=== PATIENT | male | born 1940 | race Caucasian/White ===

== ENCOUNTER → 2017-10-24 | Outpatient (CLI) | payer MEDICARE, BC ==
[~2017-10-24] MED LIST: ACET325; ACETYLCYST INH; ALBU2SYA PO; ALBU90OI6 INH; ALBUIS INH; ALEN70 PO; AMOCLA875 PO; ASPI325 PO; ATOR40TA PO; AZIT250 PO; BENZ100A PO; Bactrim Ds Tab1 EACH PO; CALCNI; CHOL10002 PO; CLOP75 PO; CYAN1000 PO; CYCL10 PO; DOCU100; EXTRA STRENGTH500 MG PO; FAMO20 PO; FENO145 PO; FISH1000 PO; FLUSAL5005 IH; FLUSAL5005 INH; FOLI1 PO; FURO20 PO; FURO40 PO; GABA300T24; GUAI600T33 PO; HYDR-86 PO; HYDR1TAB94; JALYN 0.5-0.41 EACH PO; JALYN PO; LANS30EC PO; LEVFLO500 PO; LEVO750 PO; LEVSOD100 PO; METPRE4DP PO; MONT10T PO; MULVITB&C PO; MULVITMIND PO; NAPR500 PO; NEBI10 PO; NEBI5 PO; NIAC500 PO; NITR.4SL SL; Norco 10-325 T1 EACH PO; Norco 5-325 Ta1 EACH PO; PANT40 PO; PRED10; PRED10 PO; PRED20 PO; Percocet 5-3251 EACH PO; Prednisone20 MG PO; RANO500T PO; RIFA300 PO; ROFL500T; ROFL500T PO; SITA100T2; TIOT18 IH; TIOT18 INH; VERA180ERB PO; Ventolin Soln3 ML INH; Zithromax250 MG PO; [UNRECOGNIZED DRUG - CODE]; [UNRECOGNIZED DRUG - OTHER]; [UNRECOGNIZED DRUG - OTHER]
== END | disposition home or self-care (01) ==
LOC: PLD 07:42 → LAB SHORT 07:42
DX: C44.321 Squamous cell carcinoma of skin of nose (principal)
CPT/HCPCS: 88305

== ENCOUNTER → 2017-11-02 | Outpatient (CLI) | payer MEDICARE, BC | END | disposition home or self-care (01) | LOC: LAB SHORT 08:04 → PLD 08:04 | DX: D48.5 Neoplasm of uncertain behavior of skin (principal) | CPT/HCPCS: 88304 ==

== ENCOUNTER → 2017-11-27 | Outpatient (CLI) | payer MEDICARE, BC ==
[~2017-11-27] MED LIST changes: -Norco 5-325 Ta1 EACH PO
== END | disposition home or self-care (01) ==
LOC: LAB SHORT 14:18 → PLD 14:18
DX: C44.321 Squamous cell carcinoma of skin of nose (principal)
CPT/HCPCS: 88305

== ENCOUNTER 2018-01-03 10:34 | Day surgery (SDC) | payer MEDICARE, BC ==
[~2018-01-03] VITALS: Ht 167.6 cm; Wt 66.2 kg
[2018-01-03] MEDS ORDERED: Norco 5-325 Ta1 EACH PO (11:18)
== END 2018-01-03 12:07 | disposition home or self-care (01) ==
LOC: ORSCSDS 10:34
PROVIDERS: Internal Medicine Gastroenterology
PROC: 0DJ08ZZ Inspection of Upper Intestinal Tract, Via Natural or Artificial Opening Endoscopic (ICD-10-PCS; principal; 2018-01-03 12:00)
DX: R13.10 Dysphagia, unspecified (principal); J44.9 Chronic obstructive pulmonary disease, unspecified; G47.33 Obstructive sleep apnea (adult) (pediatric); R93.5 Abnormal findings on diagnostic imaging of other abdominal regions, including retroperitoneum; K21.9 Gastro-esophageal reflux disease without esophagitis; I10 Essential (primary) hypertension; E03.9 Hypothyroidism, unspecified; E78.5 Hyperlipidemia, unspecified; F17.210 Nicotine dependence, cigarettes, uncomplicated; K22.8 Other specified diseases of esophagus; Z79.82 Long term (current) use of aspirin; Z79.899 Other long term (current) drug therapy
CPT/HCPCS: J2250; J7120

== ENCOUNTER → 2018-12-11 | Outpatient (CLI) | payer MEDICARE, BC ==
[~2018-12-11] MED LIST changes: +Norco 5-325 Ta1 EACH PO
== END | disposition home or self-care (01) ==
LOC: LAB SHORT 07:45 → PLD 07:45
DX: L28.1 Prurigo nodularis (principal)
CPT/HCPCS: 88305

== ENCOUNTER 2019-06-07 01:23 | Inpatient (IN) | payer MEDICARE, BC ==
[~2019-06-07] VITALS: Ht 175.3 cm; Wt 68.3 kg
[~2019-06-07 01:23] MED LIST changes: -GABA300T24; +GABA300T24 PO
[2019-06-07 01:45] LABS: Calcium, Ionized (POC) 1.17 mmol/L (1.10-1.46); Chloride (POC) 109 mmol/L (98-108); Creatinine (POC) 1.9 mg/dL (0.8-1.3); Glucose (ISTAT POC) 128 mg/dL (70-99); Hemoglobin (POC) 8.5 g/dL (13.5-17.5); Potassium (POC) 4.2 mmol/L (3.5-5.5); Sodium (POC) 142 mmol/L (135-148); Total CO2 (POC) 22 mmol/L (21-32)
[2019-06-07 01:53] LABS: Hematocrit 26.8 % (37.0-53.0); Hemoglobin 8.7 g/dL (13.5-17.5); Mean Corpuscular HGB 34.7 pg (26.0-34.0); Mean Corpuscular HGB Conc 32.5 g/dL (31.5-36.5); Mean Corpuscular Volume 107 fL (80-100); Mean Platelet Volume 10.8 fL (9.1-12.4); Platelet Count 74 K/mm3 (150-400); RDW Coefficient Variation 15.7 % (11.7-14.2); RDW Standard Deviation 61.7 fL (35.1-46.3); Red Blood Cell Count 2.51 M/mm3 (4.30-5.90); White Blood Cell Count 2.01 K/mm3 (4.00-11.30)
[2019-06-07 02:06] LABS: CPK Creatine Kinase 159 U/L (39-308); Creatine Kinase MB 3.5 ng/mL (0.0-3.6); Creatine Kinase MB Index 2.2 (0.0-4.0); Troponin I <0.015 ng/mL (0.000-0.040)
[2019-06-07 02:08] LABS: Albumin/Globulin Ratio 0.9 (0.8-1.8); Bilirubin, Total 0.4 mg/dL (0.1-1.0); Bun/Creatinine Ratio 17.9 (12.0-20.0); Calcium, Blood 8.5 mg/dL (8.5-10.1); Creatinine, Blood 1.62 mg/dL (0.60-1.20); Globulin, Blood 3.4 g/dL (2.2-4.0); Potassium, Blood 4.2 mmol/L (3.5-5.5); Total Protein, Blood 6.4 g/dL (6.4-8.2)
[2019-06-07 02:09] LABS: International Normalized Ratio 1.14; Prothrombin Time Results 11.9 Sec (9.7-11.5)
--- NOTE | 2019-06-07 04:08 | NUR ---
PT ADMITTED TO ROOM 336 PER CART FROM ER.
--- NOTE | 2019-06-07 06:08 | NUR ---
SHIFT SUMMARY: 79 Y/O MALE RESTED COMFORTABLY ALL SHIFT, 0505 LAB TROPONIN WAS .063 (Karime MATIAS, TYLER, CHARGE NURSE ADVISED, NEXT TROPONIN DRAW SCHEDULED IN 3 HOURS), PT VOICED HE DOES NOT LIKE WATER, DENIES CHEST PAIN, SOB, OR NAUSEA, VOICED THAT HE HAS DAUGHTER AT HOME WHOM ON A VENTILATOR AND HE IS PRIMARY CAREGIVER AND THAT HE DOES HAVE HOME CARE IN HOME, [facility] TRIAGE NURSE WAS NOTIFIED BY GÓMEZ BARNEY RN OF THE ABOVE, BED LOW POSITION WITH CALL LIGHT AT SIDE.
--- NOTE | 2019-06-07 07:00 | NUR ---
ASSUMED CARE OF PT- PT ALERT AND ORIENTED AND INDEPENDENT IN THE ROOM. PER REPORT PT HAS HAD NO C/O CP SINCE ARRIVAL ON THE UNIT. PT HAS A CONSULT FOR PALLIATIVE CARE, CALLED ON [facility] AND LEFT A MESSAGE. NIGHT RN CALLED PROVIDER CONSULT TO CARDIOLOGY AND DR STERLING CAME TO SEE THE PT DURING REPORT. PT TROPONIN IS ELEVATED, REPEAT TROPONIN WENT UP. PT DENIES CP ON ASSESSMENT. DIET ORDER IN THE COMPUTER. CALLED DR CHU, PER DR CHU KEEP PT NPO UNTIL HE SEES THE PT. BETA FANNY HELD D/T HR 49 ON TELE THIS MORNING. PT SENDING FOR HOME MED DALIRESP TO BE BROUGHT IN. PT HAD 2IV'S AT CHANGE OF SHIFT ONE A FIELD START, NO LONGER PATENT AND WAS DC'D. AC IV IN THE RIGHT ARM NOW RUNNING HEPRIN DRIP.
[2019-06-07 07:34] LABS: International Normalized Ratio 1.14; Prothrombin Time Results 11.9 Sec (9.7-11.5)
--- NOTE | 2019-06-07 12:12 | NUR ---
PT IV IN AC IS POSITIONAL, PLACED A NEW IV IN THE LEFT FA AND MELISSA LAB SAMPLE AT THE TIME OF PLACEMENT. PT TOLLERATED WELL. HEPRIN NOW INFUSING THROUGH THIS IV.
[2019-06-07 12:16] LABS: Hematocrit 26.6 % (37.0-53.0); Hemoglobin 8.7 g/dL (13.5-17.5); Mean Corpuscular HGB 34.9 pg (26.0-34.0); Mean Corpuscular HGB Conc 32.7 g/dL (31.5-36.5); Mean Corpuscular Volume 107 fL (80-100); Mean Platelet Volume 11.2 fL (9.1-12.4); Platelet Count 74 K/mm3 (150-400); RDW Coefficient Variation 15.3 % (11.7-14.2); RDW Standard Deviation 59.9 fL (35.1-46.3); Red Blood Cell Count 2.49 M/mm3 (4.30-5.90)
[2019-06-07 12:42] LABS: BASOPHILS PERCENT MAN 0 % (0-2); EOSINOPHILS PERCENT MAN 5 % (0-6); LYMPHOCYTES ABSOLUTE MAN 0.92 K/mm3 (0.84-5.20); LYMPHOCYTES PERCENT MAN 46 % (21-46); MONOCYTES ABSOLUTE MAN 0.28 K/mm3 (0.16-1.47); MONOCYTES PERCENT MAN 14 % (4-13); SEG NEUTROPHILS PERCENT MAN 35 % (41-73); TOTAL CELLS COUNTED 100
[2019-06-07 15:20] LABS: Percent Saturation 47.7 % (20.0-50.0)
--- NOTE | 2019-06-07 17:57 | NUR ---
SHIFT SUMMARY- PT HAD A PROVIDER CONSULT FOR HEMATOLOGY AND WAS SEEN TODAY. NEW ORDERS FOR SEND OUT LABS DRAWN. PT ALERT AND ORINETED, SEEMS MORE TIRED THIS EVENING THAN THIS MORNING. MORNING DOSE OF CARVEDILOL HELD D/T PULSE OF [address] CHU AWARE. CALLED FOR PARAMETER PT HR 62 THIS EVENING, NEW PARAMETER TO HOLD FOR HR LESS THAN 50. CARVEDILOL GIVEN THIS EVENING RELAYED PT VITALS TO DR PRIOR TO ADMINISTRATION. PT ON 2L O2 VIA NC, O2 SATS STABLE. PT IN NEUTROPENIC PRECAUTION D/T WBC COUNT OF 2.0 ON MORNING LABS. PT IS AWARE OF THIS, FIRST SHOT OF GRANIX ADMINISTERED TODAY.
--- NOTE | 2019-06-08 04:54 | NUR ---
SHIFT SUMMARY NO ACUTE EVENTS OVERNIGHT. SEE EMAR FOR HEPARIN DOWING. IV PATENT. NEUTROPENIC PRECAUSTIONS OBSERVED. VSS. WILL CONTINUE TO MONITOR
[2019-06-08 08:07] LABS: COMPLEMENT C3, SERUM 103 mg/dL (82-167); COMPLEMENT C4, SERUM 26 mg/dL (14-44); IMMUNOGLOBULIN A, QN, SERUM 222 mg/dL (61-437); IMMUNOGLOBULIN G, QN, SERUM 915 mg/dL (700-1600); IMMUNOGLOBULIN M, QN, SERUM 67 mg/dL (15-143)
[2019-06-08 08:46] LABS: Hematocrit 29.6 % (37.0-53.0); Hemoglobin 9.8 g/dL (13.5-17.5); Mean Corpuscular HGB 34.3 pg (26.0-34.0); Mean Corpuscular HGB Conc 33.1 g/dL (31.5-36.5); Mean Platelet Volume 11.4 fL (9.1-12.4); Platelet Count 67 K/mm3 (150-400); RDW Coefficient Variation 15.7 % (11.7-14.2); RDW Standard Deviation 59.7 fL (35.1-46.3); Red Blood Cell Count 2.86 M/mm3 (4.30-5.90); White Blood Cell Count 8.68 K/mm3 (4.00-11.30)
[2019-06-08 08:47] LABS: Mean Corpuscular Volume 104 fL (80-100)
[2019-06-08 09:11] LABS: BAND PERCENT MAN 7 % (0-8); BASOPHILS PERCENT MAN 0 % (0-2); EOSINOPHILS ABSOLUTE MAN 0.52 K/mm3 (0.00-0.68); EOSINOPHILS PERCENT MAN 6 % (0-6); LYMPHOCYTES PERCENT MAN 15 % (21-46); MONOCYTES ABSOLUTE MAN 0.69 K/mm3 (0.16-1.47); MONOCYTES PERCENT MAN 8 % (4-13); NEUTROPHILS ABSOLUTE MAN 6.16 K/mm3 (1.96-9.15); SEG NEUTROPHILS PERCENT MAN 64 % (41-73); TOTAL CELLS COUNTED 100
--- NOTE | 2019-06-08 09:33 | NUR ---
PER DR.WEESE KJ LUGO
--- NOTE | 2019-06-08 15:54 | NUR ---
ALERT. ORIENTED. SLEEPING MOST OF DAY. DENIES; N/V/D OR CHEST PAIN. TAKES OFF OXYGEN SOMETIMES. UNLABORED RESPIRATIONS. TELE ON. DR. OLVERA WAS IN TO SEE AND WILL SEE TOMORROW. IV PATENT. BED IN LOW POSITION. WCTM.
--- NOTE | 2019-06-08 20:07 | NUR ---
NOTIFIED CHARGE STEAK SAUCE MAKER TOOK BP READING OF 96/59. I REASSESSED BP MYSELF, NOTIFIED CHARGE OF LOW BP READING OF 91/60. PT IS ASYMPTOMATIC AND HIS HR IS 75 BPM. PT IS ON TELEMETRY, MONITORED BY PCU PUMP TENDER. NS IS INFUSING AT 75 ML/HR. PT TRENDS LOW BP'S 103-104 SBP'S TYPICALLY. WILL CONTINUE TO MONITOR.
[2019-06-08 22:14] LABS: Stool Occult Bld Immuno 1 Negative (NEGATIVE)
--- NOTE | 2019-06-09 04:25 | NUR ---
SHIFT SUMMARY NS INFUSING AT 75 ML/HR ORDERED. I DID NOTE SOME MILD HYPOTENSION AT BEGINNING OF SHIFT, BUT PT ASYMPTOMATIC AND TRENDS LOW BP'S. LATEST BP HAS TRENDED UP TO HIS BASELINE. PT ON NEUTROPENIC PRECAUTIONS DUE TO PANCYTOPENIA. RBC AND WBC LABS HAVE SHOWN IMPROVEMENT, PLATELETS HAVE DOWNTRENDED. AWAITING NEWEST LAB RESULTS AT THE TIME OF THIS WRITING. STOOL SAMPLE RETRIEVED AND FOUND TO BE NEGATIVE FOR BLEED. TELEMETRY MONITORING REVEALS NSR @ 72 BPM W/PVC'S ACCORDING TO PCU CUSHION FILLER.
[2019-06-09 04:42] LABS: Hematocrit 28.8 % (37.0-53.0); Hemoglobin 9.5 g/dL (13.5-17.5); Mean Corpuscular HGB 34.5 pg (26.0-34.0); Mean Corpuscular Volume 105 fL (80-100); Platelet Count 80 K/mm3 (150-400); RDW Coefficient Variation 15.9 % (11.7-14.2); RDW Standard Deviation 60.3 fL (35.1-46.3); Red Blood Cell Count 2.75 M/mm3 (4.30-5.90); White Blood Cell Count 6.76 K/mm3 (4.00-11.30)
[2019-06-09 05:02] LABS: BAND PERCENT MAN 22 % (0-8); BASOPHILS PERCENT MAN 0 % (0-2); EOSINOPHILS ABSOLUTE MAN 0.06 K/mm3 (0.00-0.68); EOSINOPHILS PERCENT MAN 1 % (0-6); LYMPHOCYTES ABSOLUTE MAN 1.41 K/mm3 (0.84-5.20); LYMPHOCYTES PERCENT MAN 21 % (21-46); MONOCYTES ABSOLUTE MAN 0.54 K/mm3 (0.16-1.47); MONOCYTES PERCENT MAN 8 % (4-13); NEUTROPHILS ABSOLUTE MAN 4.73 K/mm3 (1.96-9.15); SEG NEUTROPHILS PERCENT MAN 48 % (41-73); TOTAL CELLS COUNTED 100
[2019-06-09 05:23] LABS: Albumin, Blood 2.8 g/dL (3.4-5.0); Albumin/Globulin Ratio 0.8 (0.8-1.8); Bilirubin, Total 0.3 mg/dL (0.1-1.0); Bun/Creatinine Ratio 14.5 (12.0-20.0); Calcium, Blood 8.6 mg/dL (8.5-10.1); Creatinine, Blood 1.59 mg/dL (0.60-1.20); Globulin, Blood 3.4 g/dL (2.2-4.0); Total Protein, Blood 6.2 g/dL (6.4-8.2)
[2019-06-09 05:36] LABS: Troponin I 0.661 ng/mL (0.000-0.040)
--- NOTE | 2019-06-09 05:54 | NUR ---
SHIFT SUMMARY ADDENDUM IT IS OF NOTE THAT TROPONIN LABS ARE IMPROVING, LATEST LAB VALUE IS 0.661 - DOWN FROM A PEAK OF 0.979. CHARGE INFORMED. WILL CONTINUE TO MONITOR.
[2019-06-09] MEDS ORDERED: NEBI10 PO (11:26)
[2019-06-09] MEDS ORDERED: LEVO750 PO (11:32)
[2019-06-09] MEDS ORDERED: CEFU500T30 PO (11:33)
--- NOTE | 2019-06-09 11:55 | NUR ---
DISCHARGE INSTRUCTIONS VERBALLIZED TO PATIENT. PRINTED COPY GIVEN TO PATIENT FOR REFERENCE. IV AND TELE REMOVED. ALL QUESTIONS ANSWERED. PATIENT AWAITING FRIEND TO ARRIVE FOR TRANSPORT HOME.
--- NOTE | 2019-06-09 11:56 | NUR ---
PATIENT HOME MEDICATION RETURNED TO PATIENT
--- NOTE | 2019-06-09 12:22 | NUR ---
PATIENT DISCHARGED HOME AT 1218.
[2019-06-09 22:06] LABS: ANTI-DSDNA ANTIBODIES <1 IU/mL (0-9); RNP ANTIBODIES <0.2 AI (0.0-0.9); SJOGREN'S ANTI-SS-A <0.2 AI (0.0-0.9); SJOGREN'S ANTI-SS-B <0.2 AI (0.0-0.9); SMITH ANTIBODIES <0.2 AI (0.0-0.9)
[2019-06-11 14:07] LABS: A/G RATIO 1.1 (0.7-1.7); ALPHA-1-GLOBULIN 0.2 g/dL (0.0-0.4); ALPHA-2-GLOBULIN 0.8 g/dL (0.4-1.0); BETA GLOBULIN 0.8 g/dL (0.7-1.3); GAMMA GLOBULIN 0.9 g/dL (0.4-1.8); GLOBULIN, TOTAL 2.7 g/dL (2.2-3.9); M-SPIKE Not Observed g/dL (Not Observed); PROTEIN, TOTAL, SERUM 5.7 g/dL (6.0-8.5)
== END 2019-06-09 12:18 | disposition home or self-care (01) | DRG 280 ==
LOC: ER 01:23 → MEDS 01:24
PROVIDERS: Emergency Medicine; Family Medicine; Internal Medicine Hematology & Oncology; ADMIT Hospitalist
DX: I21.4 Non-ST elevation (NSTEMI) myocardial infarction (principal); J18.9 Pneumonia, unspecified organism; J44.1 Chronic obstructive pulmonary disease with (acute) exacerbation; D61.818 Other pancytopenia; J44.0 Chronic obstructive pulmonary disease with (acute) lower respiratory infection; I25.10 Atherosclerotic heart disease of native coronary artery without angina pectoris; F17.210 Nicotine dependence, cigarettes, uncomplicated; I35.1 Nonrheumatic aortic (valve) insufficiency; G47.33 Obstructive sleep apnea (adult) (pediatric); E03.9 Hypothyroidism, unspecified; I12.9 Hypertensive chronic kidney disease with stage 1 through stage 4 chronic kidney disease, or unspecified chronic kidney disease; E11.22 Type 2 diabetes mellitus with diabetic chronic kidney disease; N18.3 Chronic kidney disease, stage 3 (moderate)
CPT/HCPCS: 36415; 71045; 71250; 80047; 80053; 82274; 82550; 82553; 82607; 82728; 82746; 82784; 83540; 83550; 83690; 83735; 83880; 84165; 84484; 85007; 85014; 85025; 85027; 85060; 85610; 85730; 86160; 86225; 86235; 93005; 93010; 93306; 94640; 94760; 96360; 96361; 96374; 99285-25; G0378; G0480; J0696; J1447; J1644; J7030

== ENCOUNTER → 2019-07-25 | Outpatient (CLI) | payer MEDICARE, BC ==
[~2019-07-25] MED LIST changes: +CEFU500T30 PO
[2019-07-25 11:48] LABS: BASOPHILS ABSOLUTE AUTO 0.01 K/mm3 (0.00-0.23); BASOPHILS PERCENT AUTO 1 % (0-2); EOSINOPHILS ABSOLUTE AUTO 0.05 K/mm3 (0.00-0.68); EOSINOPHILS PERCENT AUTO 2 % (0-6); Hematocrit 26.9 % (37.0-53.0); Hemoglobin 8.8 g/dL (13.5-17.5); IMMATURE GRAN ABSOLUTE AUTO 0.11 K/mm3 (0.00-0.10); IMMATURE GRAN PERCENT AUTO 5 % (0-1); LYMPHOCYTES ABSOLUTE AUTO 0.81 K/mm3 (0.84-5.20); LYMPHOCYTES PERCENT AUTO 38 % (21-46); MONOCYTES ABSOLUTE AUTO 0.31 K/mm3 (0.16-1.47); MONOCYTES PERCENT AUTO 15 % (4-13); Mean Corpuscular HGB 35.8 pg (26.0-34.0); Mean Corpuscular HGB Conc 32.7 g/dL (31.5-36.5); Mean Corpuscular Volume 109 fL (80-100); Mean Platelet Volume 11.3 fL (9.1-12.4); NEUTROPHILS ABSOLUTE AUTO 0.83 K/mm3 (1.96-9.15); NEUTROPHILS PERCENT AUTO 39 % (41-73); Platelet Count 84 K/mm3 (150-400); RDW Coefficient Variation 15.7 % (11.7-14.2); RDW Standard Deviation 63.7 fL (35.1-46.3); Red Blood Cell Count 2.46 M/mm3 (4.30-5.90); White Blood Cell Count 2.12 K/mm3 (4.00-11.30)
== END | disposition home or self-care (01) ==
LOC: LAB SHORT 11:15 → LAB 11:15
PROVIDERS: Registered Nurse Oncology
DX: M81.0 Age-related osteoporosis without current pathological fracture (principal); D61.818 Other pancytopenia
CPT/HCPCS: 85025

== ENCOUNTER 2019-08-31 19:35 | Inpatient (IN) | payer MEDICARE, BC ==
[~2019-08-31] VITALS: Ht 167.6 cm; Wt 70.3 kg
[2019-08-31 20:10] LABS: PCO2 Arterial 31.1 mmHg (35-45); PO2 Arterial 70.1 mmHg (80-100); pH Blood Arterial 7.48 (7.35-7.45)
[2019-08-31 20:12] LABS: Hematocrit 24.1 % (37.0-53.0); Hemoglobin 7.7 g/dL (13.5-17.5); Mean Corpuscular Volume 113 fL (80-100); Mean Platelet Volume 10.9 fL (9.1-12.4); Platelet Count 68 K/mm3 (150-400); RDW Coefficient Variation 16.8 % (11.7-14.2); RDW Standard Deviation 69.5 fL (35.1-46.3); Red Blood Cell Count 2.14 M/mm3 (4.30-5.90); White Blood Cell Count 4.02 K/mm3 (4.00-11.30)
[2019-08-31 20:31] LABS: Alanine Aminotransfer (ALT/SGP 16 U/L (12-78); Albumin, Blood 2.8 g/dL (3.4-5.0); Albumin/Globulin Ratio 0.7 (0.8-1.8); Alk Phos 72 U/L (50-136); Anion Gap 7 mmol/L (6-16); Aspartate Aminotrans (AST/SGOT 6 U/L (12-37); Bilirubin, Total 0.9 mg/dL (0.1-1.0); Blood Urea Nitrogen 29 mg/dL (8-24); Bun/Creatinine Ratio 14.1 (12.0-20.0); CO2, Blood 24 mmol/L (21-32); Chloride, Blood 109 mmol/L (98-108); Creatinine, Blood 2.05 mg/dL (0.60-1.20); Globulin, Blood 4.3 g/dL (2.2-4.0); Glomerular Filtration Rate 34 (60-); Glucose, Blood 122 mg/dL (70-99); Potassium, Blood 4.6 mmol/L (3.5-5.5); Sodium, Blood 140 mmol/L (136-145); Total Protein, Blood 7.1 g/dL (6.4-8.2); Troponin I <0.015 ng/mL (0.000-0.040)
[2019-08-31 20:57] LABS: BAND PERCENT MAN 14 % (0-8); BASOPHILS PERCENT MAN 0 % (0-2); EOSINOPHILS PERCENT MAN 0 % (0-6); LYMPHOCYTES % ATYPICAL MANUAL 1 % (0-0); LYMPHOCYTES ABSOLUTE MAN 1.28 K/mm3 (0.84-5.20); LYMPHOCYTES PERCENT MAN 31 % (21-46); METAMYELOCYTE ABSOLUTE MAN 0.16 K/mm3 (0.00-0.00); METAMYELOCYTE PERCENT MAN 4 % (0-0); MONOCYTES ABSOLUTE MAN 1.04 K/mm3 (0.16-1.47); MONOCYTES PERCENT MAN 26 % (4-13); NEUTROPHILS ABSOLUTE MAN 1.52 K/mm3 (1.96-9.15); SEG NEUTROPHILS PERCENT MAN 24 % (41-73); TOTAL CELLS COUNTED 100
[2019-08-31 21:59] LABS: Adenovirus Not Detected (NOT DETECT); Bordetella pertussis Not Detected (NOT DETECT); Chlamydophila pneumoniae Not Detected (NOT DETECT); Coronavirus 229E Not Detected (NOT DETECT); Coronavirus HKU1 Not Detected (NOT DETECT); Coronavirus NL63 Not Detected (NOT DETECT); Coronavirus OC43 Not Detected (NOT DETECT); Human Metapneumovirus Not Detected (NOT DETECT); Human Rhinovirus/Enterovirus Not Detected (NOT DETECT); Influenza A Not Detected (NOT DETECT); Influenza A/2009-H1 Not Detected (NOT DETECT); Influenza A/H1 Not Detected (NOT DETECT); Influenza A/H3 Not Detected (NOT DETECT); Influenza B Not Detected (NOT DETECT); Mycoplasma pneumoniae Not Detected (NOT DETECT); Parainfluenza Virus 1 Not Detected (NOT DETECT); Parainfluenza Virus 2 Not Detected (NOT DETECT); Parainfluenza Virus 3 Not Detected (NOT DETECT); Parainfluenza Virus 4 Not Detected (NOT DETECT); Respiratory Syncytial Virus Not Detected (NOT DETECT)
--- NOTE | 2019-08-31 23:22 | NUR ---
2235 REPORT RECEIVED FROM TYLER CARTAGENA IN ER; PT ARRIVED VIA CART FROM ER AND SLIDE INTO BED VIA SLIDER SHEET WITH SON AT SIDE (THIS NURSE ENCOURAGED SON TO TAKE HOME ALL HIS FATHERS PERSONAL VALUABLE BELONGINGS WITH ACKNOWLEDGEMENT NOTED). 223 PT BP 79/46--RIGHT ARM AND 81/46 LEFT ARM; PT VERY WHITE AND PALE. PT PLACED INTO REVERSE [place] WITH NO CHANGE IN IV. 2255 RAPID RESPONSE CALLED WITH DR THOMAS AT SIDE WITH ORDERS RECEIVED FOR .9NS ONE LITER BOLUS; STAT EKG, TELEMETRY AND LABS; PT VERY WHITE AND PALE, ALERT AND ORIENTED X 3, ABLE TO FOLLOW ALL SIMPLE VERBAL COMMANDS. 2318 REPORT CALLED TO TYLER JONES IN ICU. PT MOVED VIA BED TO ICU RM 12.
[2019-09-01 03:48] LABS: Hemoglobin 7.2 g/dL (13.5-17.5); Mean Corpuscular HGB Conc 31.3 g/dL (31.5-36.5); Mean Platelet Volume 11.1 fL (9.1-12.4); RDW Coefficient Variation 20.7 % (11.7-14.2); RDW Standard Deviation 82.5 fL (35.1-46.3); Red Blood Cell Count 2.12 M/mm3 (4.30-5.90)
[2019-09-01 03:50] LABS: Mean Corpuscular Volume 109 fL (80-100); Platelet Count 50 K/mm3 (150-400)
[2019-09-01 04:07] LABS: Calcium, Blood 8.2 mg/dL (8.5-10.1); Creatinine, Blood 2.06 mg/dL (0.60-1.20); Potassium, Blood 4.1 mmol/L (3.5-5.5)
[2019-09-01 04:08] LABS: BAND PERCENT MAN 14 % (0-8); BASOPHILS PERCENT MAN 0 % (0-2); EOSINOPHILS PERCENT MAN 0 % (0-6); LYMPHOCYTES PERCENT MAN 16 % (21-46); METAMYELOCYTE ABSOLUTE MAN 0.07 K/mm3 (0.00-0.00); METAMYELOCYTE PERCENT MAN 4 % (0-0); MONOCYTES ABSOLUTE MAN 0.07 K/mm3 (0.16-1.47); MONOCYTES PERCENT MAN 4 % (4-13); MYELOCYTE ABSOLUTE MAN 0.01 K/mm3 (0.00-0.00); MYELOCYTE PERCENT MAN 1 % (0-0); NEUTROPHILS ABSOLUTE MAN 1.42 K/mm3 (1.96-9.15); SEG NEUTROPHILS PERCENT MAN 61 % (41-73); TOTAL CELLS COUNTED 100
[2019-09-01 05:43] LABS: IMMATURE RETIC FRACTION 17.1 % (2.3-16.0); RETICULOCYTE COUNT PERCENT 1.24 % (0.50-2.50)
--- NOTE | 2019-09-01 06:34 | NUR ---
SHIFT SUMMARY PT ARRIVED FROM MEDICAL FLOOR AFTER RAPID RESPONSE. PT HYPOTENSIVE. PATIENT ARRIVED WITH 1L NS INFUSING AND ORDERS FOR 1 UNIT PRBC. PATIENT LETHARGIC UPON ARRIVAL, BUT ORIENTED X4. LUNGS CTAB. PULSES STRONG THROUGHOUT. AFEBRILE UPON ARRIVAL TO ICU. TRANSFUSED TOTAL OF 2 UNITS PRBC. AT END OF SHIFT, PT A&OX4. LUNGS CLEAR. SECOND UNIT OF PRBCS INFUSING. AFEBRILE. LUNGS STILL CTAB. WILL CONTINUE TO MONITOR UNTIL DAY SHIFT REPORT HANDOFF.
--- NOTE | 2019-09-01 07:30 | NUR ---
ASSUMED CARE OF PT AT 0700. REPORT FROM KAREN RN. PT RESTING IN BED. A&OX 4. FOLLOWS DIRECTIONS. MAISHA. DENIES COMPLAINTS AT THIS TIME. SPEAKING IN FULL SENTANCES. LUNGS CLEAR. PRODUCTIVE COUGH c CASTRO SPUTUM. WILL COLLECT AND SEND TO LAB. PT DENIES CHEST PAIN. PT P/W/D. 1 UNIT PRBCS INFUSING AT THIS TIME. VSS. CALL LIGHT IN REACH. WILL CONTINUE TO MONITOR.
--- NOTE | 2019-09-01 15:18 | NUR ---
SHIFT SUMMARY-ICU PT'S ASSESSMENT UNCHANGED FROM THIS MORNING. PT REMAINS ON 2L O2 VIA NC. LUNGS CLEAR. A&OX 4. DENIES COMPLAINTS. 1 UNIT OF PBRCS TRANSFUSED THIS SHIFT. DR PENNY HAS SEEN PT. DIET CHANGED TO REGULAR, PT REFUSING FOOD AT THIS TIME. ONLY TAKING PO FLUIDS. STATES HE WILL HAVE FAMILY BRING FOOD. REPORT TO АЛЕКСАНДР IN PCU. WILL TRANSFER SHORTLY.
--- NOTE | 2019-09-01 17:10 | NUR ---
PT TRANSFERRED TO U AFTER VISITING c DAUGHTER. ALL BELONGINGS c PT.
--- NOTE | 2019-09-01 18:07 | NUR ---
SHIFT SUMMARY ASSUMED CARE AT APPROXIMATELY 1715. PT ALERT AND ORIENTED. VS STABLE. O2 SATS REMAIN ABOVE 90% ON 2L NC. BP STABLE. HR NSR. PT DENIES ANY PAIN. PT REPORTS THAT HE WOULD LIKE TO VISIT WITH HIS DAUGHTER THIS EVENING IN ICU. ANTIBIOTIC INFUSING PER ORDERS. PT ENCOURAGED TO CALL BEFORE AMBULATION. FAMILY AT BEDSIDE. WILL CONTINUE TO MONITOR AND REPORT TO ONCOMING RN. CALL LIGHT IN REACH.
[2019-09-02 04:01] LABS: BASOPHILS PERCENT AUTO 0 % (0-2); Hematocrit 22.9 % (37.0-53.0); Hemoglobin 7.6 g/dL (13.5-17.5); LYMPHOCYTES PERCENT AUTO 17 % (21-46); MONOCYTES ABSOLUTE AUTO 0.08 K/mm3 (0.16-1.47); MONOCYTES PERCENT AUTO 4 % (4-13); Mean Corpuscular HGB 33.9 pg (26.0-34.0); Mean Corpuscular HGB Conc 33.2 g/dL (31.5-36.5); Mean Platelet Volume 10.7 fL (9.1-12.4); Platelet Count 56 K/mm3 (150-400); RDW Coefficient Variation 21.1 % (11.7-14.2); RDW Standard Deviation 77.8 fL (35.1-46.3); Red Blood Cell Count 2.24 M/mm3 (4.30-5.90); White Blood Cell Count 1.81 K/mm3 (4.00-11.30)
[2019-09-02 04:11] LABS: EOSINOPHILS PERCENT AUTO 0 % (0-6); IMMATURE GRAN PERCENT AUTO 11 % (0-1); Mean Corpuscular Volume 102 fL (80-100); NEUTROPHILS ABSOLUTE AUTO 1.23 K/mm3 (1.96-9.15); NEUTROPHILS PERCENT AUTO 68 % (41-73)
[2019-09-02 04:28] LABS: BAND PERCENT MAN 11 % (0-8); BASOPHILS PERCENT MAN 0 % (0-2); EOSINOPHILS ABSOLUTE MAN 0.01 K/mm3 (0.00-0.68); EOSINOPHILS PERCENT MAN 1 % (0-6); LYMPHOCYTES ABSOLUTE MAN 0.27 K/mm3 (0.84-5.20); LYMPHOCYTES PERCENT MAN 15 % (21-46); METAMYELOCYTE ABSOLUTE MAN 0.01 K/mm3 (0.00-0.00); METAMYELOCYTE PERCENT MAN 1 % (0-0); MONOCYTES PERCENT MAN 6 % (4-13); NEUTROPHILS ABSOLUTE MAN 1.39 K/mm3 (1.96-9.15); SEG NEUTROPHILS PERCENT MAN 66 % (41-73); TOTAL CELLS COUNTED 100
--- NOTE | 2019-09-02 06:00 | NUR ---
SHIFT SUMMARY. SLEPT WELL AFTER STAYING UP MOST OF NOC. ASSUMED CARE AT 1900 AND DID NOT LEAAVE ROOM TO VISIT DAUGHTER IN ICU. NOTED FEW TIMES BLOOD TINGED SPUTUM AND DOES REPORT NASAL PASSAGES VERY DRY. HS SNACK AND NO DIFFICULTY SWALLOWING NOTED DC REPORTED. PLACED CALL TO DR THOMAS AT 0500 TO REPORT H_+ H NO ORDERS.DENIES ACUTE PAIN OR ISSUES THRU NOC. COMFORTABLE OOB TO BR, DENIES SOB. SR,
--- NOTE | 2019-09-02 18:11 | NUR ---
SHIFT SUMMARY PT ALERT AND ORIENTED. VS STABLE. HR NSR. O2 SATS REMAIN ABOVE 90% ON 2L NC. DISCUSSED HGB WITH DR. ROMERO AND ORDERS FOR CONSULT WITH DR. VILLEDA FOR PANCYTOPENIA. CONSULT CALLED TO OFFICE. PT GOING OVER TO VISIT DAUGHTER IN ICU BY WHEELCHAIR THROUGHOUT THE DAY. PT INFORMED OF RISK OF DOING SO, AND THAT OUR HEART MONITOR DOES NOT READ IF PT IS IN ICU. WILL CONTINUE TO MONITOR AND REPORT TO ONCOMING RN.
[2019-09-03 04:06] LABS: Percent Saturation 100.6 % (20.0-50.0)
--- NOTE | 2019-09-03 06:11 | NUR ---
PCU NOC SHIFT SUMMARY PATIENT REMAINS ALERT AND ORIENTED X4 T/O SHIFT. PATIENT REMAINS ON 2 LPM NC - LUNG SOUNDS COARSE TO WHEEZE T/O. PATIENT ABLE TO AMBULATE TO BATHROOM WITH SBA. HR REMAINS SINUS TO SINUS NIKITA T/O SHIFT FROM 50-65, NO CARDIAC EVENTS NOTED PER EXHIBIT DESIGNER. PATIENT REPORTS CHRONIC BACK PAIN RELIEVED WITH MEDICATION PER EMAR. PATIENT HAD A RESTFUL NIGHT. VSS. WILL CONTINUE TO MONITOR AND GIVE REPORT TO DAYSHIFT RN. CALL LIGHT W/I REACH.
[2019-09-03 08:55] LABS: Hematocrit 26.7 % (37.0-53.0); Hemoglobin 8.7 g/dL (13.5-17.5); Mean Corpuscular HGB Conc 32.6 g/dL (31.5-36.5); Mean Corpuscular Volume 104 fL (80-100); Platelet Count 63 K/mm3 (150-400); RDW Coefficient Variation 19.9 % (11.7-14.2); RDW Standard Deviation 75.9 fL (35.1-46.3); Red Blood Cell Count 2.56 M/mm3 (4.30-5.90)
[2019-09-03 09:09] LABS: Albumin, Blood 2.5 g/dL (3.4-5.0); Albumin/Globulin Ratio 0.6 (0.8-1.8); Bilirubin, Total 0.5 mg/dL (0.1-1.0); Bun/Creatinine Ratio 25.4 (12.0-20.0); Calcium, Blood 8.4 mg/dL (8.5-10.1); Creatinine, Blood 1.81 mg/dL (0.60-1.20); Globulin, Blood 3.9 g/dL (2.2-4.0); Potassium, Blood 4.6 mmol/L (3.5-5.5); Total Protein, Blood 6.4 g/dL (6.4-8.2)
[2019-09-03 09:35] LABS: BAND PERCENT MAN 8 % (0-8); BASOPHILS PERCENT MAN 0 % (0-2); EOSINOPHILS PERCENT MAN 0 % (0-6); LYMPHOCYTES ABSOLUTE MAN 0.44 K/mm3 (0.84-5.20); LYMPHOCYTES PERCENT MAN 32 % (21-46); METAMYELOCYTE ABSOLUTE MAN 0.01 K/mm3 (0.00-0.00); METAMYELOCYTE PERCENT MAN 1 % (0-0); MONOCYTES ABSOLUTE MAN 0.05 K/mm3 (0.16-1.47); MONOCYTES PERCENT MAN 4 % (4-13); MYELOCYTE ABSOLUTE MAN 0.02 K/mm3 (0.00-0.00); MYELOCYTE PERCENT MAN 2 % (0-0); NEUTROPHILS ABSOLUTE MAN 0.85 K/mm3 (1.96-9.15); SEG NEUTROPHILS PERCENT MAN 53 % (41-73); TOTAL CELLS COUNTED 100
--- NOTE | 2019-09-03 13:35 | NUR ---
Spiritual care visit conducted. Patient is sitting up in bed and alert. Patient tells me that he doesn't understand what the doctor said about the disease he may or may not have. Patient states that he doesn't really care because whatever it is he is not going to do anything about it unless it there is some simple mediction he can take to manage it. Patient states that he has had a life better than he deserves and if it's his time to go than he is ready. Patient is planning on going home tomorrow and he is hoping his daughter Radha will also be released to go home from the hospital as well. I listen empathically, I provide companionship and prayer. Patient responds well and shows signs of an elevated mood. I will continue to remain available to patient and family.
--- NOTE | 2019-09-03 19:34 | NUR ---
SHIFT SUMMARY PT ALERT AND ORIENTED. VS STABLE. HR NSR. O2 SATS REMAIN ABOVE 90% ON 2L NC. PT DENIES ANY PAIN. PLAN FOR BONE MARROW BIOPSY AT 7AM WITH DR. VILLEDA. PT ABLE TO AMBULATE INDEPENDENTLY. DYSPNEIC ON EXERTION, BUT O2 SATS REMAIN ABOVE 90%. REPORT GIVEN TO BENZENE STILL UTILITY OPERATOR RN.
--- NOTE | 2019-09-03 21:20 | NUR ---
PATIENT RESTING IN BED WATCHING TV. NO COMPLAINTS AT THIS TIME. SOB WITH SLIGHT ACTIVITY AND WITH TALKING. OXYGEN SAT 88-91% ON 3l/NC WHILE TALKING.
[2019-09-04] MEDS ORDERED: Norco 5-325 Ta1 EACH PO (00:11)
--- NOTE | 2019-09-04 06:30 | NUR ---
SUMMARY PATIENT SLEEPING OFF AND ON AFTER NORCO GIVEN FOR BACK AND CHEST PAIN. OXYGEN CONTINUES AT 7L/NC. COARSE WHEEZES AND SOB WITH ACTIVITY CONTINUES. WESTERN PHILOSOPHY PROFESSOR BACK TO SINUS FROM AFIB. PATIENT WAITING FOR PLANED BONE BIOPSY
--- NOTE | 2019-09-04 07:47 | NUR ---
ASSUMED CARE: PT RESTING IN BED, 7L NC IN PLACE. ALERT AND ORIENTED, TALKING TO STAFF. STATES STAFF CAME IN AND DID BIOPSY ALREADY THIS AM. DENIES NEEDS OR CONCERNS. NSR AT THIS TIME -
[2019-09-04 08:27] LABS: Performing Lab SYMBIODX; Test Name CYTOGENETICS
[2019-09-04 09:18] LABS: Hematocrit 27.2 % (37.0-53.0); Hemoglobin 8.7 g/dL (13.5-17.5); Mean Corpuscular HGB 33.9 pg (26.0-34.0); Mean Corpuscular Volume 106 fL (80-100); Mean Platelet Volume 12.4 fL (9.1-12.4); Platelet Count 55 K/mm3 (150-400); RDW Standard Deviation 74.4 fL (35.1-46.3); Red Blood Cell Count 2.57 M/mm3 (4.30-5.90); White Blood Cell Count 5.46 K/mm3 (4.00-11.30)
[2019-09-04 09:25] LABS: Bun/Creatinine Ratio 20.3 (12.0-20.0); Calcium, Blood 8.1 mg/dL (8.5-10.1); Creatinine, Blood 1.97 mg/dL (0.60-1.20); Potassium, Blood 4.9 mmol/L (3.5-5.5)
[2019-09-04 09:39] LABS: BAND PERCENT MAN 1 % (0-8); BASOPHILS PERCENT MAN 0 % (0-2); EOSINOPHILS PERCENT MAN 0 % (0-6); LYMPHOCYTES % ATYPICAL MANUAL 1 % (0-0); LYMPHOCYTES ABSOLUTE MAN 1.25 K/mm3 (0.84-5.20); LYMPHOCYTES PERCENT MAN 22 % (21-46); METAMYELOCYTE ABSOLUTE MAN 0.05 K/mm3 (0.00-0.00); METAMYELOCYTE PERCENT MAN 1 % (0-0); MONOCYTES ABSOLUTE MAN 0.21 K/mm3 (0.16-1.47); MONOCYTES PERCENT MAN 4 % (4-13); NEUTROPHILS ABSOLUTE MAN 3.93 K/mm3 (1.96-9.15); SEG NEUTROPHILS PERCENT MAN 71 % (41-73); TOTAL CELLS COUNTED 100
[2019-09-04 12:18] LABS: Performing Lab SYMBIODX; Test Name BONE MARROW
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
--- NOTE | 2019-09-04 18:06 | NUR ---
SHIFT SUMMARY: PT ON 4L AT THIS TIME. SOB WITH EXERTION. HAS GONE VIA WHEEL CHAIR TO VISIT HIS DAUGHTER IN ICU THIS SHIFT WITH CLEARANCE FROM ICU STAFF. DR ROMERO CALLED DRY CURER FOR CONSULT. INDEPENDENT IN ROOM. NO ACUTE NEEDS OR CONCERNS.
[2019-09-05 03:59] LABS: Hematocrit 26.6 % (37.0-53.0); Hemoglobin 8.5 g/dL (13.5-17.5); Mean Corpuscular HGB 33.7 pg (26.0-34.0); Mean Corpuscular Volume 106 fL (80-100); Mean Platelet Volume 11.5 fL (9.1-12.4); NRBC ABSOLUTE 0.03 K/mm3 (0.00-0.02); NRBC Auto 0.3 /100 WBC (0.0-0.2); RDW Coefficient Variation 19.1 % (11.7-14.2); RDW Standard Deviation 74.8 fL (35.1-46.3); Red Blood Cell Count 2.52 M/mm3 (4.30-5.90); White Blood Cell Count 8.79 K/mm3 (4.00-11.30)
[2019-09-05 04:04] LABS: Platelet Count 48 K/mm3 (150-400)
[2019-09-05 04:26] LABS: Anion Gap 7 mmol/L (6-16); Blood Urea Nitrogen 37 mg/dL (8-24); Bun/Creatinine Ratio 19.2 (12.0-20.0); CO2, Blood 20 mmol/L (21-32); Chloride, Blood 116 mmol/L (98-108); Creatinine, Blood 1.93 mg/dL (0.60-1.20); Glomerular Filtration Rate 36 (60-); Glucose, Blood 150 mg/dL (70-99); Sodium, Blood 143 mmol/L (136-145); Vancomycin, Random 12.2 ug/mL
[2019-09-05 04:27] LABS: BAND PERCENT MAN 12 % (0-8); BASOPHILS PERCENT MAN 0 % (0-2); EOSINOPHILS PERCENT MAN 0 % (0-6); LYMPHOCYTES PERCENT MAN 24 % (21-46); METAMYELOCYTE ABSOLUTE MAN 0.35 K/mm3 (0.00-0.00); METAMYELOCYTE PERCENT MAN 4 % (0-0); MONOCYTES PERCENT MAN 8 % (4-13); MYELOCYTE ABSOLUTE MAN 0.52 K/mm3 (0.00-0.00); MYELOCYTE PERCENT MAN 6 % (0-0); NEUTROPHILS ABSOLUTE MAN 4.92 K/mm3 (1.96-9.15); SEG NEUTROPHILS PERCENT MAN 44 % (41-73); TOTAL CELLS COUNTED 100
[2019-09-05 04:45] LABS: OTHER CELL PERCENT MAN 2 % (0-0)
--- NOTE | 2019-09-05 06:22 | NUR ---
SHIFT SUMMARY PT A&O; COMPLIANT W/ CARE; O2 SATS >90 ON 6L NC; PT DENIES CHEST PAIN; C/O CHRONIC PAIN AND BIOPSY SITE PAIN; NORCO ADMINISTERED PER EMAR; DENIES NEEDS AT THIS TIME; CALL LIGHT IN REACH; BED IN LOWEST POSITION; WILL CONTINUE TO MONITOR CLOSELY UNTIL HAND OFF TO DAY SHIFT RN.
--- NOTE | 2019-09-05 07:18 | NUR ---
ASSUMED CARE: PT RESTING QUIETLY IN BED AT THIS TIME. NO ACUTE NEEDS OR CONCERNS.
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
--- NOTE | 2019-09-05 15:40 | NUR ---
PT'S DAUGHTER WAS BEING DISCHARGED FROM ICU AND INSISTED THAT HE WAS GOING HOME WITH HER. CLINICAL COORDINATOR ATTEMPTED TO TALK HIM DOWN BUT HE WAS PACKING UP AND HEADED OUT THE DOOR. CALL TO DR ROMERO WHO ARRIVED AFTER PT ALREADY LEFT. STRETCHER AND DRIER AWARE
== END 2019-09-05 15:40 | disposition home or self-care (01) | DRG 808 ==
LOC: ER 19:35 → PCU 21:12 → MEDS 21:12 → ICUW 21:12 → MEDS 22:40 → ICUW 23:22 → PCU 09-01 17:14
PROVIDERS: Emergency Medicine; Internal Medicine Critical Care Medicine; Internal Medicine Gastroenterology; Internal Medicine Hematology & Oncology; Physician Assistant; ADMIT Hospitalist
PROC: 30233N1 Transfusion of Nonautologous Red Blood Cells into Peripheral Vein, Percutaneous Approach (ICD-10-PCS; 2019-08-31)
PROC: 07DR3ZX Extraction of Iliac Bone Marrow, Percutaneous Approach, Diagnostic (ICD-10-PCS; principal; 2019-09-04)
DX: D61.818 Other pancytopenia (principal); J18.9 Pneumonia, unspecified organism; J96.01 Acute respiratory failure with hypoxia; J44.1 Chronic obstructive pulmonary disease with (acute) exacerbation; J44.0 Chronic obstructive pulmonary disease with (acute) lower respiratory infection; N17.9 Acute kidney failure, unspecified; I25.10 Atherosclerotic heart disease of native coronary artery without angina pectoris; E11.22 Type 2 diabetes mellitus with diabetic chronic kidney disease; I12.9 Hypertensive chronic kidney disease with stage 1 through stage 4 chronic kidney disease, or unspecified chronic kidney disease; N18.3 Chronic kidney disease, stage 3 (moderate); K21.9 Gastro-esophageal reflux disease without esophagitis
CPT/HCPCS: 0099U; 31720; 36415; 36416; 36430; 36600; 71045; 71250; 74230; 80048; 80053; 80202; 82607; 82728; 82746; 82803; 82947; 83090; 83540; 83550; 83605; 84145; 84484; 85025; 85045; 85097; 86850; 86900; 86901; 86923; 87040; 87070; 87081; 87205; 88184; 88185; 88264; 88271; 88275; 88311; 88313; 88341; 88342; 92610; 92611; 93005; 93010; 94640; 94644; 94667; 94668; 94760; 96365; 96375; 99285-25; A9270; A9270-GY; J0696; J1447; J1644; J1956; J2543; J2920; J2930; J3370; J7030; J7050; P9016

== ENCOUNTER 2019-09-09 18:30 | Emergency (ER) | payer MEDICARE, BC ==
[~2019-09-09] VITALS: Ht 165.1 cm; Wt 64.4 kg
== END 2019-09-09 22:26 | disposition home or self-care (01) ==
LOC: ER 18:30
DX: R51 Headache (principal); Z88.8 Allergy status to other drugs, medicaments and biological substances; Z79.899 Other long term (current) drug therapy; Z79.82 Long term (current) use of aspirin; I10 Essential (primary) hypertension; J44.9 Chronic obstructive pulmonary disease, unspecified; I25.2 Old myocardial infarction; F17.210 Nicotine dependence, cigarettes, uncomplicated
CPT/HCPCS: 70450; 99284-25

== ENCOUNTER → 2019-10-08 | Outpatient (CLI) | payer MEDICARE, BC ==
[2019-10-08 13:06] LABS: BASOPHILS PERCENT AUTO 0 % (0-2); Hematocrit 20.7 % (37.0-53.0); Hemoglobin 6.5 g/dL (13.5-17.5); LYMPHOCYTES ABSOLUTE AUTO 0.88 K/mm3 (0.84-5.20); LYMPHOCYTES PERCENT AUTO 46 % (21-46); MONOCYTES ABSOLUTE AUTO 0.24 K/mm3 (0.16-1.47); MONOCYTES PERCENT AUTO 12 % (4-13); Mean Corpuscular HGB 34.6 pg (26.0-34.0); Mean Corpuscular HGB Conc 31.4 g/dL (31.5-36.5); Mean Corpuscular Volume 110 fL (80-100); Mean Platelet Volume 11.1 fL (9.1-12.4); Platelet Count 64 K/mm3 (150-400); RDW Coefficient Variation 19.6 % (11.7-14.2); Red Blood Cell Count 1.88 M/mm3 (4.30-5.90); White Blood Cell Count 1.93 K/mm3 (4.00-11.30)
[2019-10-08 13:10] LABS: EOSINOPHILS ABSOLUTE AUTO 0.01 K/mm3 (0.00-0.68); EOSINOPHILS PERCENT AUTO 1 % (0-6); IMMATURE GRAN ABSOLUTE AUTO 0.11 K/mm3 (0.00-0.10); IMMATURE GRAN PERCENT AUTO 6 % (0-1); NEUTROPHILS ABSOLUTE AUTO 0.69 K/mm3 (1.96-9.15); NEUTROPHILS PERCENT AUTO 36 % (41-73)
== END | disposition home or self-care (01) ==
LOC: LAB 12:12 → LAB SHORT 12:12
PROVIDERS: Internal Medicine Hematology & Oncology
DX: D46.9 Myelodysplastic syndrome, unspecified (principal)
CPT/HCPCS: 85025

== ENCOUNTER 2019-10-10 10:41 | Day surgery (SDC) | payer MEDICARE, BC ==
--- NOTE | 2019-10-09 14:56 | NUR ---
PT ARRIVED WITH IV, READY TO CHECK BLOOD AND PT DOES NOT HAVE BLOOD BAND ON, ORDER OBTAINED TO GET NEW TYPE AND SCREEN, BLOOD TAKEN BACK TO BLOOD BANK AND WAITING FOR RESULTS. PT WAS GIVEN COFFEE AND OFFERED WARM BLANKETS.
== END 2019-10-10 15:39 | disposition home or self-care (01) ==
LOC: ATC 10:41
DX: D46.9 Myelodysplastic syndrome, unspecified (principal); F17.210 Nicotine dependence, cigarettes, uncomplicated; I10 Essential (primary) hypertension; J44.9 Chronic obstructive pulmonary disease, unspecified; K21.9 Gastro-esophageal reflux disease without esophagitis; E03.9 Hypothyroidism, unspecified; I25.10 Atherosclerotic heart disease of native coronary artery without angina pectoris; Z95.5 Presence of coronary angioplasty implant and graft; Z79.899 Other long term (current) drug therapy; Z79.82 Long term (current) use of aspirin
CPT/HCPCS: 36430; 86850; 86900; 86901; 86923; J7050; P9016

== ENCOUNTER → 2019-11-04 | Outpatient (CLI) | payer MEDICARE, BC ==
[2019-11-04 12:51] LABS: Hematocrit 20.9 % (37.0-53.0); Hemoglobin 6.8 g/dL (13.5-17.5); Mean Corpuscular HGB 34.7 pg (26.0-34.0); Mean Corpuscular HGB Conc 32.5 g/dL (31.5-36.5); Mean Corpuscular Volume 107 fL (80-100); Mean Platelet Volume 10.1 fL (9.1-12.4); Platelet Count 98 K/mm3 (150-400); RDW Coefficient Variation 21.1 % (11.7-14.2); RDW Standard Deviation 80.8 fL (35.1-46.3); Red Blood Cell Count 1.96 M/mm3 (4.30-5.90); White Blood Cell Count 1.27 K/mm3 (4.00-11.30)
[2019-11-04 13:14] LABS: BAND PERCENT MAN 1 % (0-8); BASOPHILS PERCENT MAN 0 % (0-2); EOSINOPHILS PERCENT MAN 0 % (0-6); LYMPHOCYTES ABSOLUTE MAN 0.88 K/mm3 (0.84-5.20); LYMPHOCYTES PERCENT MAN 70 % (21-46); MONOCYTES ABSOLUTE MAN 0.15 K/mm3 (0.16-1.47); MONOCYTES PERCENT MAN 12 % (4-13); NEUTROPHILS ABSOLUTE MAN 0.22 K/mm3 (1.96-9.15); SEG NEUTROPHILS PERCENT MAN 17 % (41-73); TOTAL CELLS COUNTED 100
== END | disposition home or self-care (01) ==
LOC: LAB 12:19 → LAB SHORT 12:19
PROVIDERS: Internal Medicine Hematology & Oncology
DX: D46.9 Myelodysplastic syndrome, unspecified (principal)
CPT/HCPCS: 85025

== ENCOUNTER → 2019-11-11 | Outpatient (CLI) | payer MEDICARE, BC ==
[2019-11-11 13:17] LABS: Hematocrit 25.8 % (37.0-53.0); Hemoglobin 8.5 g/dL (13.5-17.5); Mean Corpuscular HGB 32.6 pg (26.0-34.0); Mean Corpuscular HGB Conc 32.9 g/dL (31.5-36.5); Mean Platelet Volume 10.1 fL (9.1-12.4); Platelet Count 110 K/mm3 (150-400); RDW Coefficient Variation 21.2 % (11.7-14.2); RDW Standard Deviation 74.7 fL (35.1-46.3); Red Blood Cell Count 2.61 M/mm3 (4.30-5.90); White Blood Cell Count 1.07 K/mm3 (4.00-11.30)
[2019-11-11 13:55] LABS: Mean Corpuscular Volume 99 fL (80-100)
[2019-11-11 14:19] LABS: BASOPHILS PERCENT MAN 0 % (0-2); EOSINOPHILS ABSOLUTE MAN 0.04 K/mm3 (0.00-0.68); EOSINOPHILS PERCENT MAN 4 % (0-6); LYMPHOCYTES ABSOLUTE MAN 0.68 K/mm3 (0.84-5.20); LYMPHOCYTES PERCENT MAN 64 % (21-46); METAMYELOCYTE ABSOLUTE MAN 0.02 K/mm3 (0.00-0.00); METAMYELOCYTE PERCENT MAN 2 % (0-0); MONOCYTES ABSOLUTE MAN 0.06 K/mm3 (0.16-1.47); MONOCYTES PERCENT MAN 6 % (4-13); NEUTROPHILS ABSOLUTE MAN 0.25 K/mm3 (1.96-9.15); SEG NEUTROPHILS PERCENT MAN 24 % (41-73); TOTAL CELLS COUNTED 100
== END | disposition home or self-care (01) ==
LOC: LAB SHORT 12:34 → LAB 12:34
PROVIDERS: Internal Medicine Hematology & Oncology
DX: D46.9 Myelodysplastic syndrome, unspecified (principal)
CPT/HCPCS: 85025

== ENCOUNTER 2020-01-02 00:12 | Day surgery (SDC) | payer MEDICARE, BC ==
[2019-12-30 12:48] LABS: Hematocrit 24.4 % (37.0-53.0); Hemoglobin 7.8 g/dL (13.5-17.5); Mean Corpuscular HGB 31.3 pg (26.0-34.0); Mean Corpuscular Volume 98 fL (80-100); Mean Platelet Volume 10.8 fL (9.1-12.4); Platelet Count 89 K/mm3 (150-400); RDW Coefficient Variation 19.4 % (11.7-14.2); RDW Standard Deviation 67.4 fL (35.1-46.3); Red Blood Cell Count 2.49 M/mm3 (4.30-5.90); White Blood Cell Count 1.65 K/mm3 (4.00-11.30)
[2019-12-30 12:58] LABS: Albumin, Blood 2.8 g/dL (3.4-5.0); Albumin/Globulin Ratio 0.6 (0.8-1.8); Bilirubin, Total 0.7 mg/dL (0.1-1.0); Bun/Creatinine Ratio 14.7 (12.0-20.0); Calcium, Blood 8.8 mg/dL (8.5-10.1); Creatinine, Blood 1.36 mg/dL (0.60-1.20); Globulin, Blood 4.9 g/dL (2.2-4.0); Potassium, Blood 4.1 mmol/L (3.5-5.5); Total Protein, Blood 7.7 g/dL (6.4-8.2)
[2019-12-30 13:10] LABS: BAND PERCENT MAN 5 % (0-8); BASOPHILS PERCENT MAN 0 % (0-2); EOSINOPHILS PERCENT MAN 0 % (0-6); LYMPHOCYTES ABSOLUTE MAN 0.79 K/mm3 (0.84-5.20); LYMPHOCYTES PERCENT MAN 48 % (21-46); MONOCYTES ABSOLUTE MAN 0.14 K/mm3 (0.16-1.47); MONOCYTES PERCENT MAN 9 % (4-13); SEG NEUTROPHILS PERCENT MAN 38 % (41-73); TOTAL CELLS COUNTED 100
[~2020-01-02 00:12] MED LIST changes: +ALBU2.5V5 INH; -ALBUIS INH; -FLUSAL5005 INH; +FLUT1DIS8 INH
== END 2020-01-02 18:25 | disposition home or self-care (01) ==
LOC: LAB 00:12 → ATC 00:12 → LAB SO 10-03 18:10 → ATC 10-03 18:10 → EDSTATUS 10-03 18:10
PROVIDERS: Internal Medicine Hematology & Oncology
DX: D46.9 Myelodysplastic syndrome, unspecified (principal); J44.9 Chronic obstructive pulmonary disease, unspecified; I10 Essential (primary) hypertension; G47.33 Obstructive sleep apnea (adult) (pediatric); E03.9 Hypothyroidism, unspecified; F17.210 Nicotine dependence, cigarettes, uncomplicated; Z79.899 Other long term (current) drug therapy; Z88.5 Allergy status to narcotic agent; Z88.8 Allergy status to other drugs, medicaments and biological substances
CPT/HCPCS: 36415; 36430; 80053; 85025; 86850; 86900; 86901; 86923; J7050; P9016

== ENCOUNTER 2020-01-23 00:05 | Day surgery (SDC) | payer MEDICARE, BC ==
[2020-01-21 12:05] LABS: Hematocrit 23.3 % (37.0-53.0); Hemoglobin 7.6 g/dL (13.5-17.5); Mean Corpuscular HGB 30.3 pg (26.0-34.0); Mean Corpuscular HGB Conc 32.6 g/dL (31.5-36.5); Mean Corpuscular Volume 93 fL (80-100); Mean Platelet Volume 10.5 fL (9.1-12.4); RDW Coefficient Variation 18.4 % (11.7-14.2); RDW Standard Deviation 61.1 fL (35.1-46.3); Red Blood Cell Count 2.51 M/mm3 (4.30-5.90); White Blood Cell Count 1.99 K/mm3 (4.00-11.30)
[2020-01-21 12:25] LABS: Platelet Count 27 K/mm3 (150-400)
[2020-01-21 12:45] LABS: BAND PERCENT MAN 8 % (0-8); BASOPHILS PERCENT MAN 0 % (0-2); EOSINOPHILS ABSOLUTE MAN 0.01 K/mm3 (0.00-0.68); EOSINOPHILS PERCENT MAN 1 % (0-6); LYMPHOCYTES % ATYPICAL MANUAL 1 % (0-0); LYMPHOCYTES ABSOLUTE MAN 0.93 K/mm3 (0.84-5.20); LYMPHOCYTES PERCENT MAN 46 % (21-46); MONOCYTES ABSOLUTE MAN 0.05 K/mm3 (0.16-1.47); MONOCYTES PERCENT MAN 3 % (4-13); NEUTROPHILS ABSOLUTE MAN 0.97 K/mm3 (1.96-9.15); SEG NEUTROPHILS PERCENT MAN 41 % (41-73); TOTAL CELLS COUNTED 100
--- NOTE | 2020-01-23 09:19 | NUR ---
LOW GRADE FEVER, PT COVERED IN BLANKETS AND WEARING HAT, REMOVED HAT, WILL RECHECK.
== END 2020-01-23 12:10 | disposition home or self-care (01) ==
LOC: ATC 00:05 → EDSTATUS 07:30 → ATC 12:10
PROVIDERS: Internal Medicine Hematology & Oncology
DX: D46.9 Myelodysplastic syndrome, unspecified (principal); I10 Essential (primary) hypertension; J44.9 Chronic obstructive pulmonary disease, unspecified; I25.10 Atherosclerotic heart disease of native coronary artery without angina pectoris; E78.5 Hyperlipidemia, unspecified; G47.33 Obstructive sleep apnea (adult) (pediatric); F17.210 Nicotine dependence, cigarettes, uncomplicated; Z79.899 Other long term (current) drug therapy
CPT/HCPCS: 36415; 36430; 85025; 86850; 86900; 86901; 86923; 96374; A9270; J7050; P9016

== ENCOUNTER → 2020-01-27 | Outpatient (CLI) | payer MEDICARE, BC ==
[~2020-01-27] MED LIST changes: -ALBU2.5V5 INH; +ALBU2.5V5 NEB; +ALBU90OI INH; +ASPI325EC PO; +Chest Congesti400 MG PO; +GABA300 PO; -GABA300T24 PO; +LEVOFLOXACIN500 MG PO; +POTA10T PO
[2020-01-27 13:34] LABS: Hematocrit 28.1 % (37.0-53.0); Hemoglobin 8.9 g/dL (13.5-17.5); Mean Corpuscular HGB 29.4 pg (26.0-34.0); Mean Corpuscular HGB Conc 31.7 g/dL (31.5-36.5); Mean Corpuscular Volume 93 fL (80-100); Mean Platelet Volume 12.2 fL (9.1-12.4); RDW Coefficient Variation 17.6 % (11.7-14.2); Red Blood Cell Count 3.03 M/mm3 (4.30-5.90); White Blood Cell Count 1.96 K/mm3 (4.00-11.30)
[2020-01-27 13:50] LABS: Platelet Count 32 K/mm3 (150-400)
[2020-01-27 13:57] LABS: BAND PERCENT MAN 4 % (0-8); BASOPHILS PERCENT MAN 0 % (0-2); EOSINOPHILS PERCENT MAN 0 % (0-6); LYMPHOCYTES ABSOLUTE MAN 0.58 K/mm3 (0.84-5.20); LYMPHOCYTES PERCENT MAN 30 % (21-46); MONOCYTES ABSOLUTE MAN 0.13 K/mm3 (0.16-1.47); MONOCYTES PERCENT MAN 7 % (4-13); NEUTROPHILS ABSOLUTE MAN 1.23 K/mm3 (1.96-9.15); SEG NEUTROPHILS PERCENT MAN 59 % (41-73); TOTAL CELLS COUNTED 100
== END | disposition home or self-care (01) ==
LOC: LAB 13:05 → LAB SHORT 13:05
PROVIDERS: Internal Medicine Hematology & Oncology
DX: D46.9 Myelodysplastic syndrome, unspecified (principal)
CPT/HCPCS: 85025

== ENCOUNTER 2020-01-28 12:53 | Emergency (ER) | payer MEDICARE, BC ==
[~2020-01-28] VITALS: Ht 165.1 cm; Wt 59.0 kg
[~2020-01-28 12:53] MED LIST changes: -ALBU90OI INH; -ASPI325EC PO; -Chest Congesti400 MG PO; -LEVOFLOXACIN500 MG PO; -NITR.4SL SL; -POTA10T PO
[2020-01-28 13:59] LABS: Hematocrit 23.4 % (37.0-53.0); Hemoglobin 7.5 g/dL (13.5-17.5); Mean Corpuscular HGB 29.9 pg (26.0-34.0); Mean Corpuscular HGB Conc 32.1 g/dL (31.5-36.5); Mean Corpuscular Volume 93 fL (80-100); Mean Platelet Volume 11.7 fL (9.1-12.4); RDW Coefficient Variation 17.3 % (11.7-14.2); RDW Standard Deviation 57.1 fL (35.1-46.3); Red Blood Cell Count 2.51 M/mm3 (4.30-5.90)
[2020-01-28 14:14] LABS: Alanine Aminotransfer (ALT/SGP 13 U/L (12-78); Albumin, Blood 2.3 g/dL (3.4-5.0); Albumin/Globulin Ratio 0.6 (0.8-1.8); Alk Phos 65 U/L (50-136); Anion Gap 7 mmol/L (6-16); Aspartate Aminotrans (AST/SGOT 20 U/L (12-37); Bilirubin, Total 0.7 mg/dL (0.1-1.0); Blood Urea Nitrogen 30 mg/dL (8-24); Bun/Creatinine Ratio 19.1 (12.0-20.0); CO2, Blood 22 mmol/L (21-32); Calcium, Blood 7.9 mg/dL (8.5-10.1); Chloride, Blood 109 mmol/L (98-108); Creatinine, Blood 1.57 mg/dL (0.60-1.20); Globulin, Blood 4.1 g/dL (2.2-4.0); Glomerular Filtration Rate 46 (60-); Glucose, Blood 101 mg/dL (70-99); Sodium, Blood 138 mmol/L (136-145); Total Protein, Blood 6.4 g/dL (6.4-8.2); Troponin I <0.015 ng/mL (0.000-0.040)
[2020-01-28 14:19] LABS: Platelet Count 30 K/mm3 (150-400)
[2020-01-28 14:35] LABS: BAND PERCENT MAN 2 % (0-8); BASOPHILS PERCENT MAN 0 % (0-2); EOSINOPHILS PERCENT MAN 0 % (0-6); LYMPHOCYTES ABSOLUTE MAN 0.63 K/mm3 (0.84-5.20); LYMPHOCYTES PERCENT MAN 49 % (21-46); MONOCYTES ABSOLUTE MAN 0.03 K/mm3 (0.16-1.47); MONOCYTES PERCENT MAN 3 % (4-13); NEUTROPHILS ABSOLUTE MAN 0.62 K/mm3 (1.96-9.15); SEG NEUTROPHILS PERCENT MAN 46 % (41-73); TOTAL CELLS COUNTED 100
== END 2020-01-28 18:07 | disposition home or self-care (01) ==
LOC: ER 12:53
PROVIDERS: Emergency Medicine
DX: R53.83 Other fatigue (principal); Z88.5 Allergy status to narcotic agent; Z88.8 Allergy status to other drugs, medicaments and biological substances; Z79.899 Other long term (current) drug therapy; I10 Essential (primary) hypertension; E78.00 Pure hypercholesterolemia, unspecified; J44.9 Chronic obstructive pulmonary disease, unspecified; I25.2 Old myocardial infarction; Z87.01 Personal history of pneumonia (recurrent); F17.210 Nicotine dependence, cigarettes, uncomplicated
CPT/HCPCS: 71045; 80053; 83880; 84484; 85025; 93005; 93010; 99285-25

== ENCOUNTER → 2020-01-29 | Outpatient (CLI) | payer MEDICARE, BC ==
[~2020-01-29] MED LIST changes: +ALBU90OI INH; +ASPI325EC PO; +Chest Congesti400 MG PO; +LEVOFLOXACIN500 MG PO; +NITR.4SL SL; +POTA10T PO
== END | disposition home or self-care (01) ==
LOC: LAB 10:30 → LAB SHORT 10:30
DX: D46.9 Myelodysplastic syndrome, unspecified (principal); R07.9 Chest pain, unspecified; R06.02 Shortness of breath
CPT/HCPCS: 80053; 85025; 85379; 86850; 86900; 86901; 86923

== ENCOUNTER 2020-01-31 10:43 | Inpatient (IN) | payer MEDICARE, BC ==
[~2020-01-31] VITALS: Ht 157.5 cm; Wt 54.4 kg
[~2020-01-31 10:43] MED LIST changes: -ALBU90OI INH; -ASPI325EC PO; -Chest Congesti400 MG PO; -LEVOFLOXACIN500 MG PO; -NITR.4SL SL; -POTA10T PO
[2020-01-31 11:36] LABS: Hematocrit 26.5 % (37.0-53.0); Hemoglobin 8.3 g/dL (13.5-17.5); Mean Corpuscular HGB 29.7 pg (26.0-34.0); Mean Corpuscular HGB Conc 31.3 g/dL (31.5-36.5); Mean Corpuscular Volume 95 fL (80-100); Mean Platelet Volume 11.7 fL (9.1-12.4); RDW Coefficient Variation 17.5 % (11.7-14.2); RDW Standard Deviation 59.6 fL (35.1-46.3); Red Blood Cell Count 2.79 M/mm3 (4.30-5.90); White Blood Cell Count 1.72 K/mm3 (4.00-11.30)
[2020-01-31 11:44] LABS: Albumin, Blood 2.8 g/dL (3.4-5.0); Albumin/Globulin Ratio 0.7 (0.8-1.8); Bilirubin, Total 0.5 mg/dL (0.1-1.0); Bun/Creatinine Ratio 19.9 (12.0-20.0); Calcium, Blood 8.6 mg/dL (8.5-10.1); Creatinine, Blood 1.46 mg/dL (0.60-1.20); Globulin, Blood 3.9 g/dL (2.2-4.0); Potassium, Blood 4.7 mmol/L (3.5-5.5); Total Protein, Blood 6.7 g/dL (6.4-8.2)
[2020-01-31 11:45] LABS: Platelet Count 33 K/mm3 (150-400)
[2020-01-31 12:03] LABS: BAND PERCENT MAN 8 % (0-8); BASOPHILS PERCENT MAN 0 % (0-2); EOSINOPHILS PERCENT MAN 0 % (0-6); LYMPHOCYTES ABSOLUTE MAN 0.39 K/mm3 (0.84-5.20); LYMPHOCYTES PERCENT MAN 23 % (21-46); METAMYELOCYTE ABSOLUTE MAN 0.05 K/mm3 (0.00-0.00); METAMYELOCYTE PERCENT MAN 3 % (0-0); MONOCYTES ABSOLUTE MAN 0.03 K/mm3 (0.16-1.47); MONOCYTES PERCENT MAN 2 % (4-13); MYELOCYTE ABSOLUTE MAN 0.05 K/mm3 (0.00-0.00); MYELOCYTE PERCENT MAN 3 % (0-0); NEUTROPHILS ABSOLUTE MAN 1.18 K/mm3 (1.96-9.15); SEG NEUTROPHILS PERCENT MAN 61 % (41-73); TOTAL CELLS COUNTED 100
[2020-01-31] MEDS ORDERED: Norco 5-325 Ta1 EACH PO (13:14)
[2020-01-31] MEDS ORDERED: NITR.4SL SL (13:15)
[2020-01-31] MEDS ORDERED: ALBU90OI INH (13:16)
[2020-01-31] MEDS ORDERED: LEVO750 PO (13:17)
[2020-01-31] MEDS ORDERED: PRED20 PO (13:18)
[2020-01-31] MEDS ORDERED: FURO20 PO (13:19)
[2020-01-31] MEDS ORDERED: CLOP75 PO (13:19)
[2020-01-31] MEDS ORDERED: NEBI10 PO (13:20)
[2020-01-31] MEDS ORDERED: Chest Congesti400 MG PO (13:23)
[2020-01-31] MEDS ORDERED: ASPI325EC PO (13:44)
--- NOTE | 2020-01-31 19:05 | NUR ---
PT ARRIVED TO ROOM RIGHT AT SHIFT CHANGE. REPORT GIVEN TO DIVIDER OPERATOR NURSE AT 1900 WHO WILL ASSUME CARE AT THIS TIME. SURGICAL SERVICES MANAGER NOTIFIED THIS NURSE OF PT VS ON ARRIVAL. THIS NURSE ASKED HER TO NOTIFY CHARGE NURSE. PT ON 3L VIA NC IN MOUTH AT THIS TIME. DIVIDER OPERATOR NURSE AWARE OF VS, AND PT ADMISSION NEEDS.
--- NOTE | 2020-01-31 19:20 | NUR ---
ASSUMED CARE RECEIVED REPORT FROM TYLER CERVANTES. PT HAD JUST ARRIVED TO FLOOR FROM THE ED. PRESENTING WITH AN INITIAL VEWS SCORE OF 5 D/T TEMP OF 101.6. THIS RN IN ROOM ASSESSING PT, VISIBLY LETHARGIC, BUT AWAKENS TO VERBAL STIMULI. A&O, SPEAKING IN BROKEN SENTENCES D/T SOB. TACHYPNEIC, ACCESSORY MUSCLE USE NOTED. TEMP REASSESSED, NOW AT 100.2. BLANKETS REMOVED AND ROOM TEMPERATURE ADJUSTED. WILL CONTINUE TO MONITOR.
--- NOTE | 2020-01-31 19:45 | NUR ---
PHYSICIAN COMMUNICATION THIS RN SPEAKING TO KIRBY LOCK REGARDING PT'S VS VEWS SCORE OF 5, NEED FOR A RESPIRATORY CARE PROTOCOL AND POOR PT PRESENTATION. ORDERS RECEIVED. WILL CONTINUE TO MONITOR.
--- NOTE | 2020-02-01 05:41 | NUR ---
SHIFT SUMMARY NO ACUTE CHANGES NOTED T/O NIGHT. PT REMAINS TACHYPNEIC, RESPS BETWEEN 22-24. VS OTHERWISE STABLE. RT GIVING BREATHING TX T/O NIGHT, PT REPORTING DECREASED SOB AND DYSPNEA. O2 SATS STABLE ON 3L/02 PER NC. PT INCREASINGLY CONFUSED AT TIMES, STATING HE DOESN'T UNDERSTAND WHY HE NEEDS TO BE HERE, WHEN NOTHING IS BEING DONE. THIS RN EDUCATING AND RE-DIRECTING PT, RE-ORIENTING TO EVENT. EXPLAINED THAT PT IS RECEIVING ABX ORDERED, AND HE IS BEING CARED FOR HERE SO THAT HE CAN GAIN STRENGTH AND GET BACK ON HIS FEET IN ORDER TO CARE FOR HIS FAMILY. PT INDICATES UNDERSTANDING BUT IS FORGETFUL. REMAINS LETHARGIC, BUT EASILY AROUSABLE. AFEBRILE SINCE INITIAL PRN ADMINISTRATION. ASLEEP AT THIS TIME. CALL LIGHT, POSSESSIONS IN REACH, BED IN LOWEST POSITION WITH ALARMS ON. AM LABS PENDING. WILL CONTINUE TO MONITOR UNTIL DAY RN ASSUMES CARE.
[2020-02-01 05:48] LABS: Hematocrit 20.5 % (37.0-53.0); Hemoglobin 6.5 g/dL (13.5-17.5); Mean Corpuscular HGB 29.5 pg (26.0-34.0); Mean Corpuscular HGB Conc 31.7 g/dL (31.5-36.5); Mean Corpuscular Volume 93 fL (80-100); Mean Platelet Volume 13.1 fL (9.1-12.4); RDW Coefficient Variation 17.4 % (11.7-14.2); RDW Standard Deviation 57.4 fL (35.1-46.3); White Blood Cell Count 1.11 K/mm3 (4.00-11.30)
[2020-02-01 06:08] LABS: Albumin, Blood 2.2 g/dL (3.4-5.0); Albumin/Globulin Ratio 0.6 (0.8-1.8); Bilirubin, Total 0.5 mg/dL (0.1-1.0); Bun/Creatinine Ratio 17.8 (12.0-20.0); Calcium, Blood 8.1 mg/dL (8.5-10.1); Creatinine, Blood 1.52 mg/dL (0.60-1.20); Globulin, Blood 3.8 g/dL (2.2-4.0); Platelet Count 24 K/mm3 (150-400); Potassium, Blood 4.7 mmol/L (3.5-5.5)
[2020-02-01 06:15] LABS: BAND PERCENT MAN 20 % (0-8); BASOPHILS PERCENT MAN 0 % (0-2); EOSINOPHILS PERCENT MAN 0 % (0-6); LYMPHOCYTES ABSOLUTE MAN 0.24 K/mm3 (0.84-5.20); LYMPHOCYTES PERCENT MAN 22 % (21-46); METAMYELOCYTE ABSOLUTE MAN 0.04 K/mm3 (0.00-0.00); METAMYELOCYTE PERCENT MAN 4 % (0-0); MONOCYTES ABSOLUTE MAN 0.15 K/mm3 (0.16-1.47); MONOCYTES PERCENT MAN 14 % (4-13); MYELOCYTE ABSOLUTE MAN 0.04 K/mm3 (0.00-0.00); MYELOCYTE PERCENT MAN 4 % (0-0); NEUTROPHILS ABSOLUTE MAN 0.62 K/mm3 (1.96-9.15); SEG NEUTROPHILS PERCENT MAN 36 % (41-73); TOTAL CELLS COUNTED 50
--- NOTE | 2020-02-01 07:54 | NUR ---
CALLED DR ROMERO- PER REPORT FROM NIGHT RN AT BEDSIDE REPORT. PT HAS BEEN COUGHING UP BLOODY FROTHY SPUTUM. PER REPORT ON 3 OCCASSIONS THE PT COUGHED UP DIME SIZED BLOOD CLOTS. ON MORNING VITALS THE PT O2 SATS WERE DOWN TO 91% TEMP WAS 101.8 TEMPORAL, HOWEVER ORAL TEMP WAS 99. RESP RATE UP TO 28. LUNGS ARE CONGESTED AND RHONCHOROUS. RECIEVED ORDER FOR Q2 AOLBUTEROL NEB TREATMENTS. OCHOA RT COLON AND HE IS AWARE OF THE NEW ORDER. PT JUST RECIEVED A DUONEB Tx APPROXIMATELY 1 HOUR AGO.
--- NOTE | 2020-02-01 09:38 | NUR ---
BLOOD TRANSFUSION STARTED WITH ELECTRONIC TEST TECHNICIAN MARCELO. PT TEMP STILL ELEVATED AT THAT TIME. TYLENOL HAD BEEN ADMINISTERED PRIOR. PT RESP RATE DECREASED AFTER THE FIRST 15 MIN BLOOD TRANSFUSION WAS RUNNING, O2 SATS INCREASED TO 98% AND THE PT APPEARS TO BE LESS STRESSED, STILL OBVIOUSLY FEELS POORLY. TEMP HAD INCREASED ON THE REPEAT VITALS BUT THE PT STILL APPEARS STABLE AND IS RESTING COMFORTABLY AT THIS TIME. WILL CTM. ELECTRONIC TEST TECHNICIAN NOTIFIED OF THE REPEAT VITALS. PT LUNG SOUNDS ARE STILL MOIST COARSE AND RONCHOROUS AND PT STILL COUGHING UP FOAMY FROTHY PINK SPUTUM.
--- NOTE | 2020-02-01 10:15 | NUR ---
SPOKE TO DR ROMERO IN THE [place]. HE CAME TO THE BEDSIDE. PT HR TACHY 140'S SBP DOWN TO 100. TEMP IS DOWN TO 100.9. RESP RATE STILL ELEVATED. TRANSFUSION PAUSED TO TALK TO ABOUT POSSIBLE REACTION. ORDER RECIEVED TO CONTINUE THE TRANSFUSION AND PLACE A SECOND PERIPHERAL LINE STAT ORDR RECIEVED FOR IV ZOSYN AND DEXAMETHAZONE. WILL GIVE JOHN ONCE SECOND IV IS ESTABLISHED. BLOOD CULTURE ORDER CANCELLED THEY WERE DRAWN YESTERDAY. PT VEW SCORE WAS SIX WHEN WAS CONTACTED MOST RECENT VEW SCORE WAS DOWN TO 5. DR ROMERO SPOKE TO THE PT ABOUT HIS WISHES ABOUT HOSPICE AND ABOUT THE USE OF LIFE SUPPORT. CALLED AND SPOKE TO DR VILLEDA AND THE PT DECIDED HE WANTS TO CONTINUE WITH TREATMENT AT THIS TIME. PT IS STILL A FULL CODE. CALLED PALLIATIVE CARE RN THEY ARE AWARE OF THE CONSULT.
--- NOTE | 2020-02-01 10:48 | NUR ---
ORDERS SPOKE WITH DR. ROMERO ABOUT PT INCREASING HR & TEMP. VEWS 6Sloane ROMERO ORDERED ANTIBIOTICS, BLOOD CULTURES, AND HYDROCORTIZONE INJECTION.
--- NOTE | 2020-02-01 15:49 | NUR ---
BLOOD TRANSFUSION OF 2 UNITS PRBC'S COMPLETED. PT RECIEVED 2 IV ABX DURING THE TRANSFUSION. PT APPERS TO BE FEELING A LITTLE BIT BETTER AND DOES NOT LOOK PALE HE DID EARLIER. PT TEMP IS MORE NORMALIZED. VEWS SCORE WAS HIGH SIX EARLIER IN THE DAY BUT HAS SINCE REDUCED TO A 2 ON RECENT VITALS. WILL CTM.
--- NOTE | 2020-02-01 18:53 | NUR ---
SHIFT SUMMARY- PT MORE TALKITIVE AND SLIGHTLY MORE ACTIVE. PT C/O PAIN PRIOR TO SHIFT CHANGE MEDICATED WITH PRN OXY. CALLED PALLIATIVE CARE CONSULT AND RN GIANNI MARIN MET WITH THE PT. PT CURRENTLY IN BED WITH THE CALL LIGHT IN REACH. IV ABX INFUSING THEN THE PT TO BE SL AGAIN. NO S&S OF DISTRESS NOTED AT THIS TIME WILL PASS ON IN BEDSIDE REPORT.
--- NOTE | 2020-02-01 19:20 | NUR ---
ASSUMED CARE RECEIVED REPORT FROM TYLER ARCHER. PT IN NO APPARENT DISTRESS AT THIS TIME, TALKATIVE AND ALERT. RESPS EVEN AND UNLABORED. O2 AT 3L/NC. STATES HE FEELS THAT HIS BREATHING IS EASIER. DENIES NEEDS AT THIS TIME. CALL LIGHT, POSSESSIONS IN REACH, WILL CONTINUE TO MONITOR.
--- NOTE | 2020-02-01 20:11 | NUR ---
Review of pt with nursing he was discussing code status with nurse. supportive visit with pt. states his son took off of work to care for mark his siter who is on home vent. The patient is her career education teacher. Will discuss code status and plan of care pt was to fatigued and painfull. need to contact son to see who is next of kin for decision making
[2020-02-02 05:29] LABS: Vancomycin, Random 8.7 ug/mL
--- NOTE | 2020-02-02 07:05 | NUR ---
SHIFT SUMMARY PT HAS HAD AN UNEVENTFUL NIGHT. REMAINED AFEBRILE. VS STABLE. STILL COUGHING UP MODERATE AMOUNTS OF BROWN SPUTUM WITH STREAKS OF BLOOD, PRESENCE OF BLOOD CLOTS DECREASING. PT STATES BREATHING IS FEELING EASIER, REPORTS SOB WITH EXERTION OR COUGHING FITS. IMPROVED WITH REST. PAIN MEDS HELD FOR LOWER BP'S, THIS RN EDUCATING PT REGARDING EFFECTS OF PAIN MEDS ON BP, PT AGREEABLE. DENIES NEEDS AT THIS TIME. NS LOCKED. CALL LIGHT, POSSESSIONS IN REACH, REPORT GIVEN TO TYLER COPPOLA.
[2020-02-02 07:22] LABS: BASOPHILS PERCENT AUTO 0 % (0-2); Hematocrit 24.1 % (37.0-53.0); Hemoglobin 8.1 g/dL (13.5-17.5); LYMPHOCYTES ABSOLUTE AUTO 0.43 K/mm3 (0.84-5.20); LYMPHOCYTES PERCENT AUTO 12 % (21-46); MONOCYTES ABSOLUTE AUTO 0.12 K/mm3 (0.16-1.47); MONOCYTES PERCENT AUTO 3 % (4-13); Mean Corpuscular HGB 30.2 pg (26.0-34.0); Mean Corpuscular HGB Conc 33.6 g/dL (31.5-36.5); Mean Platelet Volume 12.2 fL (9.1-12.4); RDW Coefficient Variation 16.6 % (11.7-14.2); RDW Standard Deviation 53.4 fL (35.1-46.3); Red Blood Cell Count 2.68 M/mm3 (4.30-5.90); White Blood Cell Count 3.69 K/mm3 (4.00-11.30)
[2020-02-02 08:07] LABS: EOSINOPHILS PERCENT AUTO 0 % (0-6); IMMATURE GRAN ABSOLUTE AUTO 0.37 K/mm3 (0.00-0.10); IMMATURE GRAN PERCENT AUTO 10 % (0-1); Mean Corpuscular Volume 90 fL (80-100); NEUTROPHILS ABSOLUTE AUTO 2.77 K/mm3 (1.96-9.15); NEUTROPHILS PERCENT AUTO 75 % (41-73)
[2020-02-02 08:13] LABS: Platelet Count 20 K/mm3 (150-400)
--- NOTE | 2020-02-02 08:21 | NUR ---
CRITICAL RESULTS RECEIVED A CRITICAL PLATTLET RESULT OF 20, DR VILLEDA IN DICTATION ROOM AND WAS VERBALLY NOTIFIED, NO NEW ORDERS AT THIS TIME
--- NOTE | 2020-02-02 18:29 | NUR ---
PT WITH PLT COUNT OF 20, 1 UNIT PLATELET'S GIVEN, NO ADVERSE REACTION NOTED. IV VANCO STARTED TODAY AND PT TOLERATED WELL, HE HAS BEEN IN A PLEASANT AND COOPERATIVE MOOD T/O THE SHIFT, NO ACUTE CHANGES NOTED, WILL CONTINUE TO MONITOR AND REPORT TO ONCOMING RN
--- NOTE | 2020-02-02 19:15 | NUR ---
ASSUMED CARE REPORT RECEIVED FROM TYLER COPPOLA. ASSUMED CARE OF PT. RESTING COMFORTABLY AT THIS TIME, NO S/S ACUTE DISTRESS NOTED. RESPS EVEN AND UNLABORED. DENIES NEEDS AT THIS TIME. CALL LIGHT AND POSSESSIONS IN REACH. WILL CONTINUE TO MONITOR.
--- NOTE | 2020-02-02 21:08 | NUR ---
PHYSICIAN COMMUNICATION PT REQUESTING PAIN MEDICATION, BP'S TRENDING LOW. SPOKE TO KIRBY MARROQUIN REGARDING PT BP'S AND REQUESTS FOR PAIN MEDICATION. ORDERS RECEIVED. WILL CONTINUE TO MONITOR. PT.
--- NOTE | 2020-02-03 00:30 | NUR ---
THIS RN NOTIFIED BY PCU HOD CARRIER REGARDING PT'S HR TRENDING SINUS BRADYCARDIA IN THE 50S. ASSESSED PT, ASYMPTOMATIC. WILL CONTINUE TO MONITOR AND REASSESS.
--- NOTE | 2020-02-03 06:44 | NUR ---
SHIFT SUMMARY PT RESTING COMFORTABLY AT THIS TIME, NO S/S ACUTE DISTRESS NOTED. BP'S CONTINUE TO TREND LOW, AVERAGING HIGH 90'S TO LOW 100'S SBP. DR. FITZPATRICK NOTIFIED OF PT CONVERSION TO AFIB, AND LOW PLATELETS YESTERDAY. ORDERS RECEIVED TO DRAW PLATELET LEVELS, AND TO CONTINUE TO MONITOR PT HR AND RHYTHM FOR NOW. PT SPOKE TO GRANDDAUGHTER EARLY IN SHIFT, MED REC COMPLETED. PT SLEPT ON AND OFF T/O NIGHT, PAIN MANAGEMENT CONTINUES TO BE AN ONGOING ISSUE D/T LOW BP'S. PT ABLE TO AMBULATE TO BATHROOM WITH MINIMAL ASSISTANCE, SBA. REQUESTING FOR RT TO COME TO GIVE BREATHING TX, RT NOTIFIED. DENIES OTHER NEEDS AT THIS TIME. CALL LIGHT, POSSESSIONS IN REACH, BED IN LOWEST POSITION WITH ALARMS ON. WILL CONTINUE TO MONITOR UNTIL REPORT GIVEN TO ONCOMING RN.
[2020-02-03 07:15] LABS: Platelet Count 38 K/mm3 (150-400)
--- NOTE | 2020-02-03 17:28 | NUR ---
Palliative Care visit: Second request received today to discuss code status and advanced care planning with pt who is very anxious to go home but agreed to stay until tomorrow. Omar is very familiar to me from both cardiac and pulmonary rehab services over the previous 5-10 years. I have not seen him in approx 5 years and he is markedly more frail, thin and ill. He is receptive and friendly when asked if we could talk about his wishes and who his surrogate decision maker would be. He is the primary cg for his gregorio, Radha, at home. She is vent dependent. He states she would be his number one surrogate decision maker. When asked if he would consider naming his son, due to Radha's frequent exacerbations and acute resp failure on chronic resp failure events he said, "No, he would want Radha first, son-Troy second and then his two granddaughters Leticia and Shivani Mann. He also mentioned his sister, Rose Liu as his only surviving sibling. He states he has completed an AD multiple times and given them to Drs and the hospital but I do not find one on file or in EMR at this hospital. Pt does not want to complete another one to document his wishes or surrogate decision makers. He states that years ago, he would have chosen to be a DNR but after seeing his daughter and survive and go on to live years after a resuscitation effort he has changed his mind. Pt has dx of community aquired pneumonia on admission with acute infectious exacerbation of his O2 dependent severe COPD, a-fib, CAD, DM, chronic kidney failure stage 3. He sees Dr Villanueva for Myelodysplastic syndrome,transfusion dependent,with anemia, neutropenia and thrombocytopenia. Pt verbalized and inquired " I can go a really long time if I just keep having transfusions, right?". I expressed that Dr Villanueva would better be able to address his prognosis for his cancer and that some of his longevity depended on other complicating factors such as his lung, heart, kidney dx. Pt states he is not afraid to and is not concerned for himself but feels as long as his daughter Radha is living and needs him he will want to remain a full code and do his best to live as long as possible. We talked about who would care for Radha if he was unable to and Omar mentioned his son and granddaughters. Pt denies pain currently. He is very dyspnic with conversation. Dyspnea has been an issue for him for many years but is definitely worsening with progression of chronic lung and heart disease, deconditioning and anemia. Pt does not feel his dyspnea is distressing to him at this time. He is most anxious to go home and states, I've been here too long already. He states he is the only family member available to be home with Radha 13/03 due to their work and family schedules. Pt remains characteristically upbeat t/o our visit. He does not appear anxious or distressed and seemed to enjoy the visit and conversation re: his wishes. He is looking forward to going home tomorrow and hoping it will be early in the day. He states his son is holding down the fort and getting things ready at home. As I was saying good bye he requested the heat be turned up, which I did and also said someone had been in to talk to him about hospice and he did not want that either. He said he would be ok with home health but he did not want hospice care or visits. Will report on my visit to [facility] staff and in am when they are available again. Report given to nursing staff on my visit.
--- NOTE | 2020-02-03 18:41 | NUR ---
SHIFT SUMMARY- PT IS A/O, PLESANT AND COOPERATIVE. HE CONVERTED TO AFIB LAST NIGHT, SPOKE WITH CARE PROVIDER, ORDERED EKG AND CARDIOLOGY CONSULT. PT CONVERTED BACK TO SINUS RHYTHM AT 1336. BLOOD PRESSURES ARE LOW PLACED PT ON IV FLUIDS. PT WANTED TO GO HOME TODAY, BUT AGREED TO STAY ONE MORE NIGHT.
--- NOTE | 2020-02-04 04:12 | NUR ---
SHIFT SUMMARY: VSS. BP 113/55. PULSE 57. AAOX3. COMMUNICATES NEEDS. COARSE RHONCHI AUSCULTATED BILATERALLY. INTERMITTENT COUGH PRODUCING YELLOW BLOOD TINGED SPUTUM. 02 SAT 95% ON 3L VIA NC. EXERTIONAL DYSPNEA. RESPS NON-LABORED AT REST. NO C/O PAIN TONIGHT. NO EPISTAXIS. APPEARS TO HAVE SLEPT INTERMITTENTLY. NO ACUTE CHANGES OVERNIGHT. WILL CONT TO MONITOR.
[2020-02-04 04:55] LABS: BASOPHILS ABSOLUTE AUTO 0.01 K/mm3 (0.00-0.23); BASOPHILS PERCENT AUTO 0 % (0-2); Hematocrit 25.4 % (37.0-53.0); Hemoglobin 8.2 g/dL (13.5-17.5); Mean Corpuscular HGB 29.7 pg (26.0-34.0); Mean Corpuscular HGB Conc 32.3 g/dL (31.5-36.5); Mean Corpuscular Volume 92 fL (80-100); Mean Platelet Volume 10.9 fL (9.1-12.4); RDW Coefficient Variation 17.2 % (11.7-14.2); RDW Standard Deviation 55.8 fL (35.1-46.3); Red Blood Cell Count 2.76 M/mm3 (4.30-5.90); White Blood Cell Count 6.13 K/mm3 (4.00-11.30)
[2020-02-04 05:17] LABS: EOSINOPHILS PERCENT AUTO 0 % (0-6); IMMATURE GRAN ABSOLUTE AUTO 0.71 K/mm3 (0.00-0.10); IMMATURE GRAN PERCENT AUTO 12 % (0-1); LYMPHOCYTES ABSOLUTE AUTO 0.59 K/mm3 (0.84-5.20); LYMPHOCYTES PERCENT AUTO 10 % (21-46); MONOCYTES ABSOLUTE AUTO 0.15 K/mm3 (0.16-1.47); MONOCYTES PERCENT AUTO 2 % (4-13); NEUTROPHILS ABSOLUTE AUTO 4.67 K/mm3 (1.96-9.15); NEUTROPHILS PERCENT AUTO 76 % (41-73)
[2020-02-04 05:18] LABS: Platelet Count 32 K/mm3 (150-400)
[2020-02-04 05:25] LABS: Albumin, Blood 2.1 g/dL (3.4-5.0); Albumin/Globulin Ratio 0.6 (0.8-1.8); Bilirubin, Total 0.6 mg/dL (0.1-1.0); Bun/Creatinine Ratio 15.8 (12.0-20.0); Calcium, Blood 7.9 mg/dL (8.5-10.1); Creatinine, Blood 1.33 mg/dL (0.60-1.20); Globulin, Blood 3.5 g/dL (2.2-4.0); Magnesium, Blood 2.3 mg/dL (1.6-2.4); Phosphorus, Blood 2.1 mg/dL (2.5-4.9); Potassium, Blood 3.6 mmol/L (3.5-5.5); Total Protein, Blood 5.6 g/dL (6.4-8.2)
[2020-02-04 05:29] LABS: BAND PERCENT MAN 34 % (0-8); BASOPHILS PERCENT MAN 0 % (0-2); BLASTS PERCENT MAN 1 % (0-0); EOSINOPHILS ABSOLUTE MAN 0.06 K/mm3 (0.00-0.68); EOSINOPHILS PERCENT MAN 1 % (0-6); LYMPHOCYTES ABSOLUTE MAN 0.79 K/mm3 (0.84-5.20); LYMPHOCYTES PERCENT MAN 13 % (21-46); METAMYELOCYTE ABSOLUTE MAN 1.65 K/mm3 (0.00-0.00); METAMYELOCYTE PERCENT MAN 27 % (0-0); MONOCYTES ABSOLUTE MAN 0.18 K/mm3 (0.16-1.47); MONOCYTES PERCENT MAN 3 % (4-13); MYELOCYTE ABSOLUTE MAN 0.18 K/mm3 (0.00-0.00); MYELOCYTE PERCENT MAN 3 % (0-0); NEUTROPHILS ABSOLUTE MAN 3.06 K/mm3 (1.96-9.15); PROMYELOCYTE ABSOLUTE MAN 0.12 K/mm3 (0.00-0.00); PROMYELOCYTE PERCENT MAN 2 % (0-0); SEG NEUTROPHILS PERCENT MAN 16 % (41-73); TOTAL CELLS COUNTED 100
[2020-02-04 08:47] LABS: Vancomycin, Trough 12.9 ug/mL (5.0-10.0)
--- NOTE | 2020-02-04 10:20 | NUR ---
Updated EFM Manager Interface on my visit with pt yesterday pm. Requested copy of AD if [facility] has one on file for Omar. Pt may not have good insight into his multiple comorbidities and health care decision making but he is quite determined and resolved in his requests.
[2020-02-04] MEDS ORDERED: LEVOFLOXACIN500 MG PO (11:05)
[2020-02-04] MEDS ORDERED: POTA10T PO (11:14)
--- NOTE | 2020-02-04 12:00 | NUR ---
MERLY INSTRUCTIONS COMPLETED AND DISCUSSED WITH PT EXPRESSING UNDERSTANDING. SCRIPTS FAXED TO [facility]ERRELL. TO [facility] VIA W/C.
== END 2020-02-04 11:57 | disposition home or self-care (01) | DRG 871 ==
LOC: ER 10:43 → MEDS 10:44
PROVIDERS: Emergency Medicine; Hospitalist; Internal Medicine; Internal Medicine Hematology & Oncology; ADMIT Internal Medicine
PROC: 30233N1 Transfusion of Nonautologous Red Blood Cells into Peripheral Vein, Percutaneous Approach (ICD-10-PCS; principal; 2020-02-01)
DX: A41.9 Sepsis, unspecified organism (principal); J18.9 Pneumonia, unspecified organism; J96.21 Acute and chronic respiratory failure with hypoxia; J44.0 Chronic obstructive pulmonary disease with (acute) lower respiratory infection; J44.1 Chronic obstructive pulmonary disease with (acute) exacerbation; I48.91 Unspecified atrial fibrillation; D69.6 Thrombocytopenia, unspecified; D46.A Refractory cytopenia with multilineage dysplasia; N18.3 Chronic kidney disease, stage 3 (moderate); R91.1 Solitary pulmonary nodule; I25.10 Atherosclerotic heart disease of native coronary artery without angina pectoris; I12.9 Hypertensive chronic kidney disease with stage 1 through stage 4 chronic kidney disease, or unspecified chronic kidney disease; E11.9 Type 2 diabetes mellitus without complications; G47.33 Obstructive sleep apnea (adult) (pediatric); M81.0 Age-related osteoporosis without current pathological fracture; E78.5 Hyperlipidemia, unspecified; E03.9 Hypothyroidism, unspecified; K21.9 Gastro-esophageal reflux disease without esophagitis; N40.0 Benign prostatic hyperplasia without lower urinary tract symptoms; F17.210 Nicotine dependence, cigarettes, uncomplicated; Z95.5 Presence of coronary angioplasty implant and graft; Z99.81 Dependence on supplemental oxygen; Z79.51 Long term (current) use of inhaled steroids; Z79.52 Long term (current) use of systemic steroids
CPT/HCPCS: 36415; 36430; 71045; 80053; 80202; 83605; 83735; 84100; 84145; 85025; 85049; 86850; 86900; 86901; 86923; 93005; 93010; 94640; 94760; 94762; 96365; 96372; 96375; 96376; 97110; 97116; 97161; 99284-25; A9270; G0378; J1447; J1720; J2543; J3010; J3370; J7030; J7040; J7050; J7512; P9016; P9035

== ENCOUNTER → 2020-02-13 | Outpatient (CLI) | payer MEDICARE, BC ==
[~2020-02-13] MED LIST changes: +ALBU90OI INH; +ASPI325EC PO; +ATOR20 PO; +LEVOFLOXACIN250 MG PO; +LEVOFLOXACIN500 MG PO; +Mucus Relief400 MG PO; +NITR.4SL SL; +POTA10T PO; +Prednisone10 MG PO
[2020-02-13 15:10] LABS: Hematocrit 25.1 % (37.0-53.0); Hemoglobin 8.2 g/dL (13.5-17.5); Mean Corpuscular HGB 30.4 pg (26.0-34.0); Mean Corpuscular HGB Conc 32.7 g/dL (31.5-36.5); Mean Corpuscular Volume 93 fL (80-100); Mean Platelet Volume 10.6 fL (9.1-12.4); RDW Coefficient Variation 16.9 % (11.7-14.2); White Blood Cell Count 1.94 K/mm3 (4.00-11.30)
[2020-02-13 15:19] LABS: Albumin, Blood 2.6 g/dL (3.4-5.0); Albumin/Globulin Ratio 0.7 (0.8-1.8); Bilirubin, Total 0.7 mg/dL (0.1-1.0); Bun/Creatinine Ratio 18.4 (12.0-20.0); Calcium, Blood 8.2 mg/dL (8.5-10.1); Creatinine, Blood 1.47 mg/dL (0.60-1.20); Globulin, Blood 3.7 g/dL (2.2-4.0); Potassium, Blood 3.9 mmol/L (3.5-5.5); Total Protein, Blood 6.3 g/dL (6.4-8.2)
[2020-02-13 15:32] LABS: Platelet Count 22 K/mm3 (150-400)
[2020-02-13 15:38] LABS: BAND PERCENT MAN 7 % (0-8); BASOPHILS PERCENT MAN 0 % (0-2); EOSINOPHILS PERCENT MAN 0 % (0-6); LYMPHOCYTES ABSOLUTE MAN 0.44 K/mm3 (0.84-5.20); LYMPHOCYTES PERCENT MAN 23 % (21-46); METAMYELOCYTE ABSOLUTE MAN 0.09 K/mm3 (0.00-0.00); METAMYELOCYTE PERCENT MAN 5 % (0-0); MONOCYTES ABSOLUTE MAN 0.11 K/mm3 (0.16-1.47); MONOCYTES PERCENT MAN 6 % (4-13); NEUTROPHILS ABSOLUTE MAN 1.28 K/mm3 (1.96-9.15); SEG NEUTROPHILS PERCENT MAN 59 % (41-73); TOTAL CELLS COUNTED 100
== END | disposition home or self-care (01) ==
LOC: LAB SHORT 14:38 → LAB 14:38
PROVIDERS: Registered Nurse Oncology
DX: D46.9 Myelodysplastic syndrome, unspecified (principal)
CPT/HCPCS: 80053; 85025

== ENCOUNTER 2020-04-04 21:08 | Inpatient (IN) | payer MEDICARE, BC ==
[~2020-04-04] VITALS: Ht 165.1 cm; Wt 51.1 kg
[2020-04-04 21:38] LABS: BASOPHILS PERCENT AUTO 0 % (0-2); Hematocrit 26.6 % (37.0-53.0); Hemoglobin 8.8 g/dL (13.5-17.5); LYMPHOCYTES ABSOLUTE AUTO 0.39 K/mm3 (0.84-5.20); LYMPHOCYTES PERCENT AUTO 10 % (21-46); MONOCYTES ABSOLUTE AUTO 0.11 K/mm3 (0.16-1.47); MONOCYTES PERCENT AUTO 3 % (4-13); Mean Corpuscular HGB 29.6 pg (26.0-34.0); Mean Corpuscular HGB Conc 33.1 g/dL (31.5-36.5); Mean Corpuscular Volume 90 fL (80-100); Mean Platelet Volume 9.7 fL (9.1-12.4); RDW Coefficient Variation 14.8 % (11.7-14.2); RDW Standard Deviation 47.5 fL (35.1-46.3); Red Blood Cell Count 2.97 M/mm3 (4.30-5.90); White Blood Cell Count 4.08 K/mm3 (4.00-11.30)
[2020-04-04 21:39] LABS: EOSINOPHILS PERCENT AUTO 0 % (0-6); IMMATURE GRAN ABSOLUTE AUTO 0.31 K/mm3 (0.00-0.10); IMMATURE GRAN PERCENT AUTO 8 % (0-1); NEUTROPHILS ABSOLUTE AUTO 3.27 K/mm3 (1.96-9.15); NEUTROPHILS PERCENT AUTO 80 % (41-73)
[2020-04-04 21:40] LABS: Platelet Count 25 K/mm3 (150-400)
[2020-04-04 21:50] LABS: International Normalized Ratio 1.12; Prothrombin Time Results 11.9 Sec (9.7-11.5)
[2020-04-04 21:57] LABS: BAND PERCENT MAN 24 % (0-8); BASOPHILS PERCENT MAN 0 % (0-2); EOSINOPHILS PERCENT MAN 0 % (0-6); LYMPHOCYTES ABSOLUTE MAN 0.44 K/mm3 (0.84-5.20); LYMPHOCYTES PERCENT MAN 11 % (21-46); METAMYELOCYTE ABSOLUTE MAN 1.26 K/mm3 (0.00-0.00); METAMYELOCYTE PERCENT MAN 31 % (0-0); MONOCYTES ABSOLUTE MAN 0.32 K/mm3 (0.16-1.47); MONOCYTES PERCENT MAN 8 % (4-13); NEUTROPHILS ABSOLUTE MAN 2.04 K/mm3 (1.96-9.15); SEG NEUTROPHILS PERCENT MAN 26 % (41-73); TOTAL CELLS COUNTED 100
[2020-04-04 22:01] LABS: Troponin I 0.071 ng/mL (0.000-0.040)
[2020-04-04 22:46] LABS: Albumin, Blood 2.3 g/dL (3.4-5.0); Albumin/Globulin Ratio 0.6 (0.8-1.8); Bilirubin, Total 0.8 mg/dL (0.1-1.0); Bun/Creatinine Ratio 21.3 (12.0-20.0); Calcium, Blood 8.4 mg/dL (8.5-10.1); Creatinine, Blood 1.36 mg/dL (0.60-1.20); Globulin, Blood 3.8 g/dL (2.2-4.0); Potassium, Blood 4.1 mmol/L (3.5-5.5); Total Protein, Blood 6.1 g/dL (6.4-8.2)
--- NOTE | 2020-04-05 06:47 | NUR ---
SHIFT SUMMARY: TACHYCARDIC. TEMPS 99.1, 99.4. PT ABLE TO GIVE AND STATES HE IS IN THE HOSPITAL, DOES NOT KNOW WHY, DISORIENTED TO DATE. BED ALARM ON. IMPULSIVE WHEN NEEDING TO VOID, STANDS QUICKLY, UNSTABLE ON HIS FEET. BED ALARM ON. 02 97% ON 3L VIA NC. ORAL SUCTION IN PLACE. COUGH PRODUCING MOD AMTS OF WHITE FROTHY SPUTUM W/ OCCASIONAL BROWN SPECS. COARSE LS AUSCULTATED THROUGHOUT- CLEARED SOME W/COUGH, RT TX, AND POSITIONING. NO C/O PAIN. NO ACUTE CONCERNS AT THIS TIME.
--- NOTE | 2020-04-05 07:10 | NUR ---
ASSUMED CARE: PT RESTING QUIETLY, 3L NC IN PLACE. BED ALARM ON. NO ACUTE NEEDS OR CONCERNS AT THIS TIME.
--- NOTE | 2020-04-05 07:51 | NUR ---
PT WITH INCREASED RESPIRATIONS DURING ACTIVITY. COUGH SOUNDS VERY CONGESTED. CALL TO PALLIATIVE CARE TO DISCUSS CASE. AWAITING CALL BACK
--- NOTE | 2020-04-05 09:00 | NUR ---
[facility] CARE INITIAL VISIT - Received message and request for visit first thing this am to pt who was admitted last evening in the ER. Omar is very well known to me over the past 10 years of cardiopulmonary rehab and many visits with Palliative Care over the recent years. Omar was sleeping soundly and did not wake to voice or touch initially. He appears to be in discomfort and severely dyspnic even in sleep with all accessory muscles being used to breathe. He has pallor to blueish color, is thin and frail. He is not taking deep breaths. While I was on the phone with his son, Troy, Omar attemted to get out of bed. TEST EQUIPMENT MECHANIC in the room with him. He could not tell the TEST EQUIPMENT MECHANIC why he was trying to get out of bed. Pt is confused and is not able to think thru reasoning for safety. TEST EQUIPMENT MECHANIC able to get him to lie down again. TEST EQUIPMENT MECHANIC did oral suctioning and I provided oral care. I told pt his family was coming in to see him and he nodded. I told him they would like to take care of him at home and he started shaking his head no. WHen I asked if he would like to go home he nodded yes. I did not attempt conversation after that as pt was struggling to breathe. REport provided to RN, Son and Dr Escamilla. Son would like his dad to be kept comfortable and put on comfort care. His sister, Troy and Troy's are headed in to see Omar. I believe that Omar appears to be actively dying due to respiratory failure. He has had severe COPD for more than a decade. He also has medical hx of CAD, s/p CABG and stenting, DM, CHF, GERD. He has more recently battled Dx of myelodysplastic syndrome, becoming transfusion dependent due to pancytopenia for a long time now. Per , pt has new lesions in his brain that may not be part of his myelodysplastic syndrome. He also has lung infiltrates which will be treated with antibiotics. Lab in to draw blood cultures during my visit. Pt has orders for medications for pain. Discussed with RN recommendations for judicious use of RX per Juan Carlos to help with air hunger/pain. Troy in agreement with treating pt's symptoms. to discuss comfort care further with pt/family. No comfort care orders or tx at this time per Dr Escamilla due to pt's opposition to hospice care when asked. Son and Jose both request no aggressive treatment at this time and pt is a DNR.
--- NOTE | 2020-04-05 09:49 | NUR ---
PALLIATIVE CARE NURSE CAME IN TO SPEAK WITH PT AND HAS SPOKEN WITH SON OVER THE PHONE. SPOKE WITH DR PENNY REGARDING PT. PALLIATIVE CARE AND DR PENNY STATE PT IS REFUSING COMFORT CARE OR HOSPICE AT THIS TIME. HE IS ORIENTED TO SELF AND PLACE BUT UNAWARE OF TIME OR PRESIDENT. ADMINSITERED 0.5MG IV DILAUDID FOR PT'S AIR HUNGER. MADE CHARGE RNS AND GEODESY TEACHER AWARE OF PT'S CIRCUMSTANCES.
--- NOTE | 2020-04-05 10:50 | NUR ---
Pal Care Note: Called to third floor when pt's son arrived. Met with Troy, who is appropriately tearful and grieving. He requests that his dad be placed on Hospice care. He feels his dad is suffering and does not want it prolonged. He has visited his dad this am and has been caring for him at home. He states his dad grew more confused a couple weeks ago and started yelling at him about everything he tried to do to care for him. He states this is not his dad's norm. His dad has been the caregiver for Troy's sister, Radha, who is vent dependent at home. Troy does not live in the home but has been there for most of the past two weeks. Pt has been in the hospital very frequently over the past year, also had chemo tx and/or transfusions more than weekly for many months. He has wanted to continue seeking tx in order to take care of Radha. Troy states he and his sister both want Omar to be made comfort care. Pt appears more comfortable with less gasping/air hunger after rx given per eMar. Pt does remain confused. RT in to give him a breathing tx at this time also. Instructed Troy, we had discussed EOL care request with earlier and 's response. Troy requests to discuss with . I notified that Troy would like to discuss further with him. Dr Escamilla sitting and talking with Son after I called him. I spoke with RN 20 minutes later to get any updates. No new orders.
--- NOTE | 2020-04-05 11:16 | NUR ---
DR PENNY SPOKE WITH PT'S SON. PLANS UNCHANGED AT THIS TIME UNLESS PT BECOMES UNABLE TO SPEAK WITH STAFF.
--- NOTE | 2020-04-05 12:15 | NUR ---
THIS AM BEDSIDE SWALLOW EVAL WAS DONE AND PT WAS ABLE TO TAKE MEDS WITHA FEW BITES OF A.S. THE DAY HAS PROGRESSED HE HAS HAD MORE DIFFICULTY FOLLOWING INSTRUCTIONS AND WHEN HE COUGHS HE DOES NOT SPIT OUT SECRETIONS. WILL REMAIN NPO AT THIS TIME.
[2020-04-05 12:33] LABS: Appearance, Urine Clear (Clear); Bilirubin, Urine Neg (Neg); Blood, Urine 2+ (Neg); Color, Urine Yellow (P-Yellow); Glucose Qualitative, Urine Neg (Neg); Ketones, Urine Neg (Neg); Leukocyte Esterase, Urine Neg (Neg); Nitrite, Urine Neg (Neg); Protein, Urine 3+ (Neg); Specific Gravity, Urine 1.015 (1.003-1.022); Urobilinogen, Urine NORM (Normal); pH, Urine 6.5 (5.0-8.0)
[2020-04-05 12:45] LABS: Bacteria Few /hpf; Red Blood Cells, Urine 0-2 /hpf (0-2); Squamous Epithelial Cells Rare /hpf (Few); White Blood Cells, Urine 0-2 /hpf (0-5); Yeast/Fungi Urine Many /hpf
--- NOTE | 2020-04-05 14:06 | NUR ---
PT'S DAUGHTER AT BEDSIDE AND STATES PT'S POLST OR ADVANCED DIRECTIVE SAYS RESUCITATION. EXPLAINED TO HER THAT THEY ARE WITHIN THEIR RIGHTS TO CHANGE IT BUT EXPLAINED THAT COMPRESSIONS ARE ROUGHT AND BREAK RIBS AND GIVEN HIS RESPIRATORY HISTORY HE MAY HAVE A HARD TIME COMING OFF OF INTUBATION. CALL TO PALLIATIVE CARE NURSE WHO STATES SHE WILL BE BY TO SEE FAMILY SHORTLY
--- NOTE | 2020-04-05 14:20 | NUR ---
PAL CARE NOTE: PAL CARE VISIT #4 TODAY. AT RN'S REQUEST I RETURNED TO PT'S ROOM TO SPEAK WITH XIOMARA NO WHO IS HIS MEDICAL POA. PT IS AWAKE, RECEIVING BREATHING TREATMENT AND FAMILY AROUND THE BED. WE WENT TO A QUIET PLACE [facility] TO ASK QUESTIONS AND DISCUSS GOALS OF CARE. ONEAL SOLANO'S QUESTIONS ANSWERED AND AT END OF 20 MINUTE CONVERSATION SHE IS CLEAR THAT SHE DOES NOT WANT ANYONE TO DO CPR ON PT OR INTUBATE. SHE WAS GIVEN FULL UPDATE PER DR'S PN ON MULTIPLE LIFE THREATENING HEALTH CONCERNS. SHE WANTS PT ON COMFORT CARE OR TO BE SURE THAT HE IS BEING KEPT COMFORTABLE. OTHER SIBLINGS AND FAMILY MEMBERS VOICE AND NOT IN AGREEMENT TO HER STATED WISHES. THERE WAS NO ONE IN THE GROUP OF 8 FAMILY MEMBERS WHO WANT ANYTHING DIFFERENT THAN ONEAL AND KAMLA HAVE REPEATED T/O THE DAY. ONEAL DID NOT WANT TO CHANGE HIS CODE STATUS BUT DID WANT MORE INFORMATION ABOUT THE TREATMENT HE WAS RECEIVING AND THE GOALS OF CARE. SHE DOES NOT WANT HIS LIFE OR SUFFERING PROLONGED WTIH ANY CARE WE ARE PROVIDING. REPORT GIVEN TO PT'S RN ON OUR FAMILY MEETING.
--- NOTE | 2020-04-05 14:33 | NUR ---
PALLIATIVE CARE NURSE SPOKE WITH PT'S FAMILY AND PLANS ARE FOR PT TO REMAIN DNR/DNI AT THIS TIME. DNR BAND IN PLACE. FAMILY AT BEDSIDE.
--- NOTE | 2020-04-05 18:01 | NUR ---
SHIFT SUMMARY: PT HAS BEEN LETHARGIC THIS SHIFT AND LESS ORIENTED DAY PROGRESSED BUT ROUSES EASILY AND RECOGNIZES FAMILY WHO HAS BEEN AT BEDSIDE MOST OF SHIFT. PALLIATIVE CARE NURSE SPOKE WITH FAMILY REGARDING PLANS OF CARE. FAMILY WISHES FOR COMFORT CARE BUT PT REFUSES AT THIS TIME. CURRENTLY NPO DUE TO DIFFICULTY SWALLOWING. MEDICATED FOR PAIN X3 DUE TO AIR HUNGER. RESPONDED WELL TO 0.5MG DILAUDID EACH TIME. RESTING QUIETLY WITH 3L OXYGEN IN PLACE
--- NOTE | 2020-04-05 21:58 | NUR ---
PT AAOX1. TALKING AND ANSWERING QUESTIONS. PT POSITIONED UPRIGHT AT 90 DEGREES. JOAQUIM PO INTAKE OF WATER ON SPOON WELL. NO COUGHING. SWALLOWED SCHEDULED MED WITHOUT DIFFICULTY. VISUALIZED THAT MOUTH WAS CLEAR. PT DENIES PAIN AT THIS TIME.
[2020-04-06 05:20] LABS: Hematocrit 21.6 % (37.0-53.0); Mean Corpuscular HGB 29.9 pg (26.0-34.0); Mean Corpuscular HGB Conc 32.4 g/dL (31.5-36.5); Mean Corpuscular Volume 92 fL (80-100); Mean Platelet Volume 11.2 fL (9.1-12.4); RDW Coefficient Variation 14.8 % (11.7-14.2); RDW Standard Deviation 49.5 fL (35.1-46.3); Red Blood Cell Count 2.34 M/mm3 (4.30-5.90); White Blood Cell Count 1.63 K/mm3 (4.00-11.30)
[2020-04-06 05:24] LABS: Platelet Count 14 K/mm3 (150-400)
[2020-04-06 05:32] LABS: International Normalized Ratio 1.17; Prothrombin Time Results 12.4 Sec (9.7-11.5)
--- NOTE | 2020-04-06 05:34 | NUR ---
SHIFT SUMMARY: VSS. AFEB. AAOX1. WILL COMMUNICATE NEEDS ONLY WHEN ASKED DIRECTLY. HEAR GRUNTING AND MOVING AROUND IN BED EACH TIME HE NEEDS TO VOID. WILL NOT ASK FOR HELP BUT ACCEPTS HELP READILY. DENIES PAIN TONIGHT. RHONCHOUS LS. HOB ELEVATED FOR COMFORT. OCCASIONAL PRODUCTIVE COUGH, SPUTUM NOT OBSERVED HOWEVER. PT REFUSED TO REMOVE UPPER DENTURE. ORAL CARE PERFORMED. RESPS SHALLOW, NON-LABORED. 02 SATS 94-97% ON 3L VIA NC. PT LEAVING NC IN NOSE OR MOUTH MOST OF THE NIGHT. NO ACUTE CONCERNS AT THIS TIME. APPEARS RELAXED AND COMFORTABLE, RESTING QUIETLY.
[2020-04-06 05:38] LABS: Albumin, Blood 1.9 g/dL (3.4-5.0); Albumin/Globulin Ratio 0.5 (0.8-1.8); Bilirubin, Total 0.5 mg/dL (0.1-1.0); Bun/Creatinine Ratio 28.8 (12.0-20.0); Calcium, Blood 7.8 mg/dL (8.5-10.1); Creatinine, Blood 1.32 mg/dL (0.60-1.20); Globulin, Blood 3.6 g/dL (2.2-4.0); Potassium, Blood 4.1 mmol/L (3.5-5.5); Total Protein, Blood 5.5 g/dL (6.4-8.2)
[2020-04-06 06:47] LABS: BAND PERCENT MAN 7 % (0-8); BASOPHILS PERCENT MAN 0 % (0-2); EOSINOPHILS PERCENT MAN 0 % (0-6); LYMPHOCYTES ABSOLUTE MAN 0.13 K/mm3 (0.84-5.20); LYMPHOCYTES PERCENT MAN 8 % (21-46); METAMYELOCYTE ABSOLUTE MAN 0.13 K/mm3 (0.00-0.00); METAMYELOCYTE PERCENT MAN 8 % (0-0); MONOCYTES ABSOLUTE MAN 0.04 K/mm3 (0.16-1.47); MONOCYTES PERCENT MAN 3 % (4-13); NEUTROPHILS ABSOLUTE MAN 1.32 K/mm3 (1.96-9.15); TOTAL CELLS COUNTED 100
[2020-04-06 06:54] LABS: SEG NEUTROPHILS PERCENT MAN 74 % (41-73)
--- NOTE | 2020-04-06 10:25 | NUR ---
[facility] C[facility] COMFORT CARE VISIT - Son, Troy had just arrived and was out in ruiz. He was updated on new orders Pt lying on left side, flat, in position. He appeared cold but felt warm. Pt repositioned for comfort with more head support. Ronco applied. Pt responds when spoken to but kept eyes closed. I could not tell if he was aware his son was at the bedside. When asked, pt states he is not hurting. He is displaying nonverbal indicators of mild to moderate pain with grimacing, furrowing brow and grunting with movement. He appears calm. I believe he is accostomed to a high level of discomfort and is normally very stoic. RN and PETS AND PET SUPPLIES SALESPERSON updated on change to comfort care status. Orders entered per 's VO.
--- NOTE | 2020-04-06 13:51 | NUR ---
SUCTION SET UP AND IN REACH OF PT, PT SELF SUCTIONS SECRETIONS PRN
--- NOTE | 2020-04-06 17:16 | NUR ---
Spiritual care inital note: Omar was surrounded by family when I visited. Son and DIL tearful, but appropriate. Omar was minimally responsive. He nodded 'yes' to prayer. Facilitated prayer with family to good effect. Omar appears comfortable and well-loved. Gentle anticipatory bereavement apprise counselor and affirmation of love well recieved by family. I will remain available.
--- NOTE | 2020-04-07 04:50 | NUR ---
pt at 0412 with family in the room. provider notified.
== END 2020-04-07 04:12 | DRG 54 ==
LOC: ER 21:08 → MEDS 21:09
PROVIDERS: Emergency Medicine; Internal Medicine Gastroenterology; ADMIT Internal Medicine
DX: C79.31 Secondary malignant neoplasm of brain (principal); J18.9 Pneumonia, unspecified organism; G92 Toxic encephalopathy; D61.818 Other pancytopenia; I25.10 Atherosclerotic heart disease of native coronary artery without angina pectoris; J44.9 Chronic obstructive pulmonary disease, unspecified; Z51.5 Encounter for palliative care; G47.33 Obstructive sleep apnea (adult) (pediatric); K21.9 Gastro-esophageal reflux disease without esophagitis; E03.9 Hypothyroidism, unspecified; N40.0 Benign prostatic hyperplasia without lower urinary tract symptoms; Z66 Do not resuscitate; D46.9 Myelodysplastic syndrome, unspecified; D69.6 Thrombocytopenia, unspecified; Z74.01 Bed confinement status
CPT/HCPCS: 36415; 70450; 71045; 80053; 81001; 83880; 84484; 85025; 85610; 87040; 93005; 93010; 94640; 94760; 96361; 96374; 96376; 99285-25; A9270-GY; G0378; J1100; J1170; J1956; J2060; J7030; J7120